=== PATIENT | female | born 2000 ===

== ENCOUNTER 2021-02-10 11:15 | Outpatient (RCR) | payer OTHER, SELFPAY ==
[2021-01-27 12:16] VITALS: BMI 20.7
--- NOTE | 2021-01-27 12:33 | P.HPPSP_ITS ---
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 She reported that she has been following psychiatric services since she was 17 due to depressive symptoms elicited by depressed mood, anhedonia, lack of energy and feelings of hopelessness. She also was abusing alcohol heavely, and she passed out on November 22 2020 and she was admitted inpatient. She has been sober since then. She has only one prior admission into the hospital During the interview, she admitted that she had a few very short episodes of elated mood, shopping sprees and increased energy and irritability and her prescriber has diagnosed her with Bipolar Disorder Type II. Currently she is on Ablify and Lexapro with good improvement, no safety concerns. HPI Medical Evaluation Reviewed: No [facility] Medical History History of renal stone Family History: Denies Social History: The patient is the 2nd of 3 siblings, her milestones were achieved at expected age, she was raised by her mother and had a good childhood. Her parents when she was a sophomore. She graduated from high school and now she is working part-time, lives with his father and she has good social support. Substance History: She started abusing alcohol since she was 19, currently clean and sober. She had abused Valium and Oxycontin, scripts from her mother, but clean and sober of pills for the last 8 months before the intake. Trauma History: Denies Diagnostics Vital Signs (24Hr): Body Mass Index 20.7 Meds/Allergies Allergies Allergies Allergy/AdvReac Type Severity Reaction Status Date / Time No Known Allergies Allergy Verified 01/27/21 11:26 Mental Status Exam Mental Status Exam Patient Appearance: Well Grooomed Patient Orientation: Person, Place, Time and Situation Level of Consciousness: Awake Patient Behavior: Appropriate Mood Description: Calm Affect Description: Appropriate Patient Cognition Impaired: No Ability to Follow Directions: Good Speech Pattern: Clear Memory Description: Intact Hallucinations: None Delusions: Not Present Thought Process: Goal Oriented Thought Content: positive for Intact Judgement: Fair Assessment & Plan Assessment & Plan (1) Bipolar 2 disorder: Status: Acute Code(s): F31.81 - Bipolar II disorder (2) Alcohol abuse: Status: Acute Code(s): F10.10 - Alcohol abuse, uncomplicated Assessment and Plan: Young adult female with good social support with bipolar type II and alcohol use disorder, clean and sober after discharge from the hospital Plan Keep Da and Roman Certification I certify that partial hospital treatment is medically necessary due to the symptoms and problems resulting from the patient's mental illness and the failure to treat the patient at the partial hospital level of care would likely result in the patient requiring inpatient psychiatric care which could not be prevented at a less intensive level of care. Telehealth Telehealth Location of provider rendering services: practice address Location of patient: address on file Patient Identification confirmed using: Name, : Yes Telehealth method: video Patient verbally consented to treatment: Yes Patient verbally consented to billing insurance company: Yes Patient informed of any privacy concerns related to visit: No Time spent with patient (mins): 45
--- NOTE | 2021-01-27 12:40 | PC.ADMIT ---
Patient is a 20 year old female who self referred to the [facility] d/t increase in depression with passive SI, no plan or intent, and increased anxiety with panic attacks. Patient has a history of using substances to cope. Patient reports she has hospitalized in November d/t an incident with alcohol and has been sober since. Patient has a history of stealing her mothers prescription Oxycontin and Valium 8 months ago. Patient has been kicked out of her mother's house and currently living with her father. She reports using Marijuana 3-4 bowls daily last use on 01/25/21 and plans to abstain from this while in the program. Patient is alert and oriented x4. Presents with depressed anxious mood. Denied current SI or thoughts to harm herself. Gave verbal permission to email her a copy of her safety plan. Patient has the crisis number if needed. Medications reconciled with patient and patient's pharmacy. Patient reports taking her medications as prescribed.
--- NOTE | 2021-02-01 14:18 | P.PNPSP_ITS ---
Subjective Subjective Date of Service: 02/01/21 Reason For Visit: MDD, ETOH Interim History: The patient reported that she is doing good, participating in groups. She noticed some sedation and nausea with Abilify 5 mg, the change of her dose was a month ago. We discussed options and she agreed to lower Abilify 2 mg po qhs, fully aware of the risk of hypomania. Medication Compliance: Yes Side effects from medications: Yes (oversedation with Abilify) Attending Groups: Yes Mental Status Exam Mental Status Exam Patient Appearance: Well Grooomed Patient Orientation: Person, Place, Time and Situation Level of Consciousness: Awake Patient Behavior: Appropriate Mood Description: Calm Affect Description: Appropriate Patient Cognition Impaired: No Ability to Follow Directions: Good Speech Pattern: Clear Memory Description: Intact Hallucinations: None Delusions: Not Present Thought Process: Goal Oriented Thought Content: positive for Intact Judgement: Fair Diagnostics Vital Signs (24Hr): Body Mass Index 20.7 Assessment & Plan Assessment & Plan (1) Bipolar 2 disorder: Status: Acute Code(s): F31.81 - Bipolar II disorder Assessment and Plan: Young adult female with bipolar type II, recently discharged from inpatient, stable but with oversedation with Abilify5 mg po qhs. Plan: Lower to 2 mg and reassess, fully aware of the risk of relapse on mood symptoms (2) Alcohol abuse: Status: Acute Code(s): F10.10 - Alcohol abuse, uncomplicated Certification I certify that partial hospital treatment is medically necessary due to the symptoms and problems resulting from the patient's mental illness and the f ailure to treat the patient at the partial hospital level of care would likely result in the patient requiring inpatient psychiatric care which could not be prevented at a less intensive level of care. Greater than 50% of the session was spent on counseling and/or coordination of care Discharge Plan Discharge Attending provider: Duong Negro Primary Care Provider: Tracie Padilla Medications: New aripiprazole [Abilify] 2 mg tablet 2 mg PO DAILY 14 Days Qty: 14 RF: 0 Discontinued aripiprazole [Abilify] 5 mg Tablet 5 mg PO DAILY RF: 0 No Action trazodone 50 mg Tablet 50 - 100 mg PO BEDTIME PRN (Reason: Insomnia) RF: 0 ondansetron HCl 8 mg Tablet 4 mg PO BID RF: 0 escitalopram oxalate [Lexapro] 10 mg Tablet 10 mg PO DAILY RF: 0 Referrals: Tracie Padilla MD [Primary Care Provider] - 1 Week Telehealth Telehealth Location of provider rendering services: practice address Location of patient: address on file Patient Identification confirmed using: Name, : Yes Telehealth method: video Patient verbally consented to treatment: Yes Patient verbally consented to billing insurance company: Yes Patient informed of any privacy concerns related to visit: No Time spent with patient (mins): 15
--- NOTE | 2021-02-08 13:29 | PC.NURSE ---
I met with pt at her request and offered to refer her to a substance use IOP. She is struggling with cravings to use, but reports she is safe and does not intend to use. She agreed to the referral for [facility] IOP and gave me verbal release/ permission to call. I called and put in a referral, the emailed her the info. She has a phone appointment for an intake on Saturday February 27, 2021 at 2pm. They will call.
--- NOTE | 2021-02-09 14:31 | HO.PHPPROGNO ---
Subjective Subjective Date of Service: 02/09/21 Reason For Visit: MDD, ETOH Interim History: The patient reported that she is doing well with the current treatment, no safety issues, content with the current regimen Medication Compliance: Yes Side effects from medications: No Attending Groups: Yes Mental Status Exam Mental Status Exam Patient Appearance: Well Grooomed Patient Orientation: Person, Place, Time and Situation Level of Consciousness: Awake Patient Behavior: Appropriate Mood Description: Calm Affect Description: Appropriate Patient Cognition Impaired: No Ability to Follow Directions: Good Speech Pattern: Clear Memory Description: Intact Hallucinations: None Delusions: Not Present Thought Process: Goal Oriented Thought Content: positive for Intact Judgement: Fair Diagnostics Vital Signs (24Hr): Body Mass Index 20.7 Assessment & Plan Assessment & Plan (1) Bipolar 2 disorder: Status: Acute Code(s): F31.81 - Bipolar II disorder Assessment and Plan: Young female with Bipolar Type II and alcohol use disorder referred from inpatient for continuation of care, so far stable and doing well on Lexapro and a low dose of Abilify. Plan: Keep same treatment. F/U with outpatient providers. D/C (2) Alcohol abuse: Status: Acute Code(s): F10.10 - Alcohol abuse, uncomplicated Certification I certify that partial hospital treatment is medically necessary due to the symptoms and problems resulting from the patient's mental illness and the failure to treat the patient at the partial hospital level of care would likely result in the patient requiring inpatient psychiatric care which could not be prevented at a less intensive level of care. Greater than 50% of the session was spent on counseling and/or coordination of care Discharge Plan Discharge Attending provider: Duong Negro Primary Care Provider: Tracie Padilla Additional Instructions: Phone appointment for an intake at [facility] for substance use IOP on Saturday February 27, 2021 at 2pm. They will call. If you don't hear from them by 2:15, pls call them at [phone]. It should take from 1 to 1 1/2 hours to complete. Medications: New aripiprazole [Abilify] 2 mg tablet 2 mg PO DAILY 14 Days Qty: 14 RF: 0 Discontinued aripiprazole [Abilify] 5 mg Tablet 5 mg PO DAILY RF: 0 No Action trazodone 50 mg Tablet 50 - 100 mg PO BEDTIME PRN (Reason: Insomnia) RF: 0 ondansetron HCl 8 mg Tablet 4 mg PO BID RF: 0 escitalopram oxalate [Lexapro] 10 mg Tablet 10 mg PO DAILY RF: 0 Referrals: Tracie Padilla MD [Primary Care Provider] - 1 Week Stand Alone Forms: Patient Portal Discharge page Telehealth Telehealth Location of provider rendering services: practice address Location of patient: address on file Patient Identification confirmed using: Name, : Yes Telehealth method: video Patient verbally consented to treatment: Yes Patient verbally consented to billing insurance company: Yes Patient informed of any privacy concerns related to visit: No Time spent with patient (mins): 15
--- NOTE | 2021-02-10 14:15 | PC.NURSE ---
Patient discharging from the program today. Reviewed patient's medications with patient. Patient reports she is taking medications as prescribed. Medication education provided.
--- NOTE | 2021-02-10 17:04 | PC.NURSE ---
I called and spoke to Pt's therapist, Jihan Berrios, informing her of pt's successful discharge from [facility] today, and her plans to attend [facility] [place]. Discussed progress made in [facility].
== END 2021-02-13 08:57 | disposition home or self-care (01) ==
LOC: HO.PHPA 11:15
PROVIDERS: PCP Pediatrics; Visit Provider Psychiatry & Neurology Psychiatry
DX: F31.81 Bipolar II disorder (principal); F10.10 Alcohol abuse, uncomplicated; Z79.899 Other long term (current) drug therapy
CPT/HCPCS: 90791; 90853

== ENCOUNTER 2021-06-07 09:25 | Outpatient (RCR) | payer OTHER, SELFPAY ==
--- NOTE | 2021-06-08 09:14 | PC.NURSE ---
Patient left the community meeting stating she would be back. I called her after the community meeting. Patient was crying stating she has a lot of anxiety and was not expecting the groups to be so small which is creating more anxiety. She stated she does not want to continue and feels this is not a good fit for her at this time. Patient denied SI, asked if she was safe and she stated she was. Asked who she could call if she felt unsafe and she stated Crisis. Team is aware.
== END 2021-06-08 09:16 | disposition home or self-care (01) ==
LOC: HO.PHPA 09:25
PROVIDERS: PCP Pediatrics; Visit Provider Psychiatry & Neurology Psychiatry
DX: F33.2 Major depressive disorder, recurrent severe without psychotic features (principal); F31.81 Bipolar II disorder; F41.9 Anxiety disorder, unspecified

== ENCOUNTER 2023-06-10 12:36 | Inpatient (IN) | payer BC, SELFPAY ==
[2023-06-10 12:55] VITALS: BP 156/83; PULSE 110; RESP 20; TEMP 36.8; O2SAT 98; BMI 17.2
--- NOTE | 2023-06-10 12:56 | ED.PSYCH ---
HPI - Psych General Stated Complaint: pysch eval Related Data Home Medications Medication Instructions Recorded Confirmed escitalopram oxalate 10 mg tablet 10 mg PO DAILY 01/27/21 01/27/21 (Lexapro) ondansetron HCl 8 mg tablet 4 mg PO BID 01/27/21 01/27/21 trazodone 50 mg tablet 50 - 100 mg PO BEDTIME PRN Insomnia 01/27/21 01/27/21 Previous Rx's Medication Instructions Recorded aripiprazole 2 mg tablet (Abilify) 2 mg PO DAILY 14 days #14 tabs 02/01/21 Allergies Allergy/AdvReac Type Severity Reaction Status Date / Time No Known Allergies Allergy Verified 06/10/23 12:58 [facility] Past Medical History Medical History History of renal stone Social History Social History Household Members: Family Household Members Other:: Lives with her father Course Course Course Narrative: RME - 22 yo female with history of bipolar 2 disorder and former substance abuse who presents to the ER for evaluation of SI and self harm thoughts, worsening over the last 3 weeks. Therapist sent her to the ER for evaluation and possible inpatient psych admission. Last hospitalized in 2020. Plan: medical clearance, CARE team evaluation Discharge Plan Discharge Prescriptions: No Action trazodone 50 mg Tablet 50 - 100 mg PO BEDTIME PRN (Reason: Insomnia) Rx Instructions: Take 1-2 tabs at Bedtime as needed for Insomnia ondansetron HCl 8 mg Tablet 4 mg PO BID Patient Comments: Patient stated her prescriber told her to cut the tabs in 1/2 and take BID. Rx Instructions: Take twice a day for 10 days escitalopram oxalate [Lexapro] 10 mg Tablet 10 mg PO DAILY aripiprazole [Abilify] 2 mg tablet 2 mg PO DAILY 14 Days Qty: 14 0RF
[2023-06-10 13:13] LABS: MANUAL DIFF FLAG NO
[2023-06-10 13:14] LABS: Basophils Absolute Auto 0.1 X10*3/uL (0.0-0.2); Basophils Percent Auto 0.4 % (0-2); Eosinophils Absolute Auto 0.4 X10*3/uL (0.0-0.4); Eosinophils Percent Auto 3.1 % (0-4); Hematocrit 40.4 % (37.0-47.0); Hemoglobin 13.9 g/dl (12.0-16.0); Imm Gran Abs Auto 0.05 X10*3/uL (0.00-0.03); Imm Gran Pct Auto 0.4 % (0.0-0.4); Lymphocytes Absolute Auto 2.5 X10*3/uL (1.2-4.9); Lymphocytes Percent Auto 22.3 % (20-40); Mean Corpuscular HGB Conc 34.4 g/dl (31.0-35.0); Mean Corpuscular Hemoglobin 33.1 pg (27.0-33.0); Mean Corpuscular Volume 96.2 fL (80.0-98.0); Mean Platelet Volume 8.4 fL (9.4-12.3); Monocytes Absolute Auto 0.8 X10*3/uL (0.1-1.2); Monocytes Percent Auto 7.1 % (2-11); Neutrophils Absolute Auto 7.5 x10*3/uL (2.0-8.3); Neutrophils Percent Auto 66.7 % (45-73); Platelet Count 224 X10*3/uL (160-400); Red Cell Distribution Width 12.3 % (11.0-16.0); White Blood Count 11.2 X10*3/uL (4.8-10.8)
[2023-06-10 13:16] LABS: Appearance Urine Clear; Color Urine Yellow; Glucose Urine UA Negative (Negative); Leukocyte Esterase Urine Small (1+) (Negative); Nitrite Urine Negative (Negative); UMIC TRIGGER UACC YES; Urine Blood Moderate (2+) (Negative); Urine Ketones Negative (Negative); Urine Protein Negative (Neg-Trace)
[2023-06-10 13:24] LABS: Amphetamine Screen Urine Not Detected (Not Detect); Barbiturates, Urine Not Detected (Not Detect); Benzodiazepines Screen Urine Not Detected (Not Detect); Cannabinoid Screen Urine POSITIVE (Not Detect); Cocaine Screen Urine Not Detected (Not Detect); Fentanyl, urine Not Detected (Not Detect); Opiate Screen Urine Not Detected (Not Detect); Phencyclidine Screen Urine Not Detected (Not Detect)
[2023-06-10 13:28] LABS: Ethanol < 10 mg/dL
[2023-06-10 13:32] LABS: Alanine Aminotransferase 7 U/L (0-31); Albumin Level 4.8 g/dL (3.5-5.0); Alkaline Phosphatase 66 U/L (39-117); Anion Gap 11 (12-20); Aspartate Amino Transferase 13 U/L (5-31); Bilirubin Direct 0.1 mg/dL (0.0-0.5); Bilirubin Total 0.3 mg/dL (0.0-1.0); Blood Urea Nitrogen 10 mg/dL (9-16); Calcium 10.2 mg/dL (8.4-10.2); Carbon Dioxide 25 mmol/L (22-29); Chloride 108 mmol/L (96-108); Creatinine Clr Calc Pharmacy 85.9; Estimated Glomerular Filt Rate > 60; Glucose Random 110 mg/dL (60-115); Magnesium 2.2 mg/dL (1.6-2.6); Potassium 4.3 mmol/L (3.3-5.1); Sodium 140 mmol/L (135-145); Total Protein 7.6 g/dL (6.5-8.0)
[2023-06-10 13:41] LABS: UPreg QC Valid YES; Urine Pregnancy NEGATIVE (NEGATIVE)
[2023-06-10 13:43] LABS: Bacteria Urine 1+ (None Seen); Hyaline Casts Urine 0-2 /LPF (0-2); UACC Culture Trigger YES
--- NOTE | 2023-06-10 13:53 | ED_ITS ---
HPI - Psych General Chief Complaint: Psychiatric Symptoms Stated Complaint: surendra santana Time Seen by Provider: 06/10/23 13:43 Source: patient Mode of arrival: ambulatory Limitations: no limitations History of Present Illness HPI Narrative: Patient comes to the emergency room reporting worsening suicidal thoughts. Patient states that prior to arrival today, she did not harm himself in any way. Patient states that she is pretty good at taking her medications, but for the last couple of days, she has had decreased appetite and she has not been taking her meds. Patient denies any homicidal ideation. Patient went to see her therapist today, she is asked to come to the emergency room for further evaluation. Related Data Home Medications Medication Instructions Recorded Confirmed atomoxetine 40 mg capsule 40 mg PO QAM 06/10/23 06/10/23 buspirone 15 mg tablet 15 mg PO BID 06/10/23 06/10/23 cariprazine 3 mg capsule (Vraylar) 3 mg PO DAILY 06/10/23 06/10/23 lamotrigine 100 mg tablet 100 mg PO DAILY 06/10/23 06/10/23 norethindrone (contraceptive) 0.35 0.35 mg PO DAILY 06/10/23 06/10/23 mg tablet (Incassia) Allergies Allergy/AdvReac Type Severity Reaction Status Date / Time No Known Allergies Allergy Verified 06/10/23 12:58 Review of Systems 2 Review of Systems: Constitutional : No Weight loss, No Fever, No Chills, No Night Sweats, No Fatigue, No Malaise ENT/Mouth : No Hearing loss, No Ear Pain, No Nasal Congestion, No Sinus Pain, No Hoarseness, No sore throat, No Rhinorrhea, No Swallowing Difficulty Eyes: No Eye Pain, No Swelling, No Redness, No Foreign Body, No Discharge, No Vision Changes Cardiovascular : No Chest Pain, No SOB, No Dyspnea on Exertion, No Orthopnea, No Edema, No Palpitations Respiratory : No Cough, No Sputum, No Wheezing, No Smoke Exposure, No Dyspnea Gastrointestinal : No Nausea, No Vomiting, No Diarrhea, No Constipation, No abdominal Pain, No Hematochezia, No Melena Genitourinary : no irregular bleeding, No Dysuria, No Urinary Frequency, No Hematuria, No Urinary Incontinence, No Urgency, No Flank Pain, No Urinary Flow Changes, No Hesitancy Musculoskeletal : No joint pain, No Myalgias, No Joint Swelling Skin : No Skin Lesions, No rash Neuro : No Weakness, No Numbness, No Paresthesias, No Loss of Consciousness, No Dizziness, No Headache Psych : No Anxiety/Panic, complaining of depression, SI, no HI Heme/Lymph: No Bruising, No Bleeding,No Lymphadenopathy Endocrine : No Polyuria, No Polydipsia, No Temperature Intolerance [facility] Past Medical History Medical History (Updated 06/10/23 @ 14:02 by Alice Ohara MD) Alcohol abuse Bipolar 2 disorder History of renal stone Social History Social History Household Members: Family Household Members Other:: Lives with her father Alcohol intake: never Smoked in Last 30 Days: No Use of substances other than those prescribed or required for medical reasons: Yes Substance Use Type: Marijuana Advance Directives: No Advance Directives Information Provided: Yes Healthcare Proxy: No Guardian: No Patient : No Physical Exam 2 Vital Signs: Vital Signs: Last Vital Signs Temp 98.2 F 06/10/23 12:55 Pulse 110 H 06/10/23 12:55 Resp 20 06/10/23 12:55 BP 156/83 H 06/10/23 12:55 Pulse Ox 98 06/10/23 12:55 O2 Del Method Room Air 06/10/23 12:55 BMI result Body Mass Index 17.2 Const: Other: Appearance: Alert. Oriented X3. No acute distress. Eyes: Pupils equal, round and reactive to light. ENT: Pharynx normal. Neck: Normal inspection. Neck supple. No lymph nodes noted. No crepitus CVS: Normal heart rate and rhythm. Pulses normal. Normal S1 and S2 Respiratory: No respiratory distress. Breath sounds normal. No Wheezing. No rales Abdomen: Soft and nontender. No rigidity. No distention. Skin: Skin warm and dry. Normal skin color. Normal skin turgor. Extremities: No lower extremity edema. No Lacerations. No Rash Neuro: Oriented X 3. No motor deficit. No sensory deficit. Moving all extremities. No slurred speech. CN 2 through 12 grossly intact Psych: calm, cooperative, normal affect Course Course Course Narrative: -care team consult pending Medications Administered Generic Name Dose Route Start Last Admin Trade Name Freq PRN Reason Stop Dose Admin Nitrofurantoin Macrocrystals 100 mg 06/10/23 14:05 06/10/23 16:40 Nitrofurantoin Monohyd/M-Cryst 100 Mg Capsule PO 100 mg BID NIKI Administration Discontinued Medications Generic Name Dose Route Start Last Admin Trade Name Sidney PRN Reason Stop Dose Admin Cariprazine 3 mg 06/10/23 16:00 06/10/23 16:56 Cariprazine Hcl 3 Mg Capsule PO Not Given DAILY NIKI Lamotrigine 100 mg 06/10/23 16:00 06/10/23 16:56 Lamotrigine 100 Mg Tablet PO Not Given DAILY NIKI Medical Decision Making Medical Decision Making [facility] Narrative: -my interpretation of labs: White blood cell count 11.2, chemistry unremarkable, negative -patient has a mild UTI, patient was given the 1st dose of Macrobid in the ED -care team consult mom was done, recommendations: Inpatient psych, patient agreeable with plan Differential Diagnosis Differential Diagnoses: The differential diagnosis associated with the presentation includes (Patient will remain under observation until cleared by Behavioral Health) Admission/Observation Consideration of admission/observation: Escalation of care including admission/observation considered Consult Healthcare Provider Management of the patient was discussed with: Behavioral Health Provider Lab Data [facility] Lab Attestation statement: I reviewed the patient's lab results. 06/10/23 13:05 06/10/23 13:05 Labs: Lab Results 06/10/23 Range/Units 13:05 WBC 11.2 H (4.8-10.8) X10*3/uL RBC 4.20 (4.20-5.50) X10*6/uL Hgb 13.9 (12.0-16.0) g/dl Hct 40.4 (37.0-47.0) % MCV 96.2 (80.0-98.0) fL MCH 33.1 H (27.0-33.0) pg MCHC 34.4 (31.0-35.0) g/dl RDW 12.3 (11.0-16.0) % Plt Count 224 (160-400) X10*3/uL MPV 8.4 L (9.4-12.3) fL Immature Gran % (Auto) 0.4 (0.0-0.4) % Neut % (Auto) 66.7 (45-73) % Lymph % (Auto) 22.3 (20-40) % Hood % (Auto) 7.1 (2-11) % Eos % (Auto) 3.1 (0-4) % Baso % (Auto) 0.4 (0-2) % Lymph # (Auto) 2.5 (1.2-4.9) X10*3/uL Hood # (Auto) 0.8 (0.1-1.2) X10*3/uL Eos # (Auto) 0.4 (0.0-0.4) X10*3/uL Baso # (Auto) 0.1 (0.0-0.2) X10*3/uL Abs Immat Gran (auto) 0.05 H (0.00-0.03) X10*3/uL Absolute Neuts (auto) 7.5 (2.0-8.3) x10*3/uL Absolute Nucleated RBC 0.000 (0.0-0.012) X10*3/uL Nucleated RBC % (auto) 0.0 (0.0-0.2) /100WBC Sodium 140 (135-145) mmol/L Potassium 4.3 (3.3-5.1) mmol/L Chloride 108 (96-108) mmol/L Carbon Dioxide 25 (22-29) mmol/L Anion Gap 11 L (12-20) BUN 10 (9-16) mg/dL Creatinine 0.89 (0.5-1.4) mg/dL Estim Creat Clear Calc 85.9 Estimated GFR > 60 Random Glucose 110 (60-115) mg/dL Calcium 10.2 (8.4-10.2) mg/dL Magnesium 2.2 (1.6-2.6) mg/dL Total Bilirubin 0.3 (0.0-1.0) mg/dL Direct Bilirubin 0.1 (0.0-0.5) mg/dL AST 13 (5-31) U/L ALT 7 (0-31) U/L Alkaline Phosphatase 66 (39-117) U/L Total Protein 7.6 (6.5-8.0) g/dL Albumin 4.8 (3.5-5.0) g/dL Urine Color Yellow Urine Appearance Clear Urine pH 6.0 (5.0-9.0) Ur Specific [place] 1.020 (1.005-1.025) Urine Protein Negative (Neg-Trace) mg/dL Urine Glucose (UA) Negative (Negative) mg/dL Urine Ketones Negative (Negative) mg/dL Urine Blood Moderate (2+) H (Negative) Urine Nitrite Negative (Negative) Ur Leukocyte Esterase Small (1+) H (Negative) Urine RBC 6-10 H (0-2) /HPF Urine WBC 6-10 H (0-5) /HPF Ur Squamous Epith Cells 3-5 (0-2) /HPF Urine Bacteria 1+ (None Seen) Hyaline Casts 0-2 (0-2) /LPF Urine Test NEGATIVE (NEGATIVE) Urine Opiates Screen Not Detected (Not Detect) Urine Fentanyl Screen Not Detected (Not Detect) Ur Barbiturates Screen Not Detected (Not Detect) Ur Phencyclidine Scrn Not Detected (Not Detect) Ur Amphetamines Screen Not Detected (Not Detect) U Benzodiazepines Scrn Not Detected (Not Detect) Urine Cocaine Screen Not Detected (Not Detect) U Marijuana (THC) Screen POSITIVE H (Not Detect) Ethyl Alcohol < 10 mg/dL Critical Care Time Critical Care Time Critical Care Time: Yes Total Critical Care Time: 60 Attestation: I have personally provided critical care time. Time includes review of lab data, radiology results, discussion with consultants, and monitoring for potential decompensation. Intervention performed as documented. Discharge Plan Discharge Clinical Impression: Suicidal ideation Patient Disposition: Still a Patient Prescriptions: No Action norethindrone (contraceptive) [Incassia] 0.35 mg tablet 0.35 mg PO DAILY lamotrigine 100 mg tablet 100 mg PO DAILY buspirone 15 mg tablet 15 mg PO BID atomoxetine 40 mg capsule 40 mg PO QAM Vraylar 3 mg capsule 3 mg PO DAILY Interventions: [place]-Suicide Risk Severity Scale Last Done: 06/10/23 15:17
--- NOTE | 2023-06-10 15:20 | PC.NURSE ---
Patient reports had recent med changes and has had increasing thoughts of SI since med changes. Patient reports inability to work has been a stressor for her. Denies HI, NO SI plan. Calm and cooperative, denies pain or discomfort
[2023-06-10] MEDS: Nitrofurantoin Monohyd/M-Cryst 100 MG CAPSULE PO ×2 (16:40→20:16)
--- NOTE | 2023-06-10 16:47 | PC.NURSE ---
Called pharmacy to adjust med administration times
--- NOTE | 2023-06-10 18:13 | MHC.CARE ---
Patient evaluated by the CARE Team and will be referred for inpatient psychiatric treatment.
--- NOTE | 2023-06-10 18:23 | PC.NURSE ---
Patient visiting with boyfriend, calm and cooperative
[2023-06-10] MEDS: busPIRone HCl 5 MG TABLET 15 MG PO (20:16)
[2023-06-10] MEDS: LORazepam 1 MG TABLET 2 MG PO (20:16)
[2023-06-10 21:50] LABS: COVID-19 Test Negative (Negative); IDNOW Serial# 6674DD1D
--- NOTE | 2023-06-11 | ECG_ITS ---
Test Reason : assess qt interval Blood Pressure : / mmHG Vent. Rate : 089 BPM Atrial Rate : 089 BPM P-R Int : 128 ms QRS Dur : 068 ms QT Int : 340 ms P-R-T Axes : 068 087 042 degrees QTc Int : 413 ms Normal sinus rhythm with sinus arrhythmia Possible Left atrial enlargement Septal infarct , age undetermined Abnormal ECG No previous ECGs available Referred By: Dalton Justice Electronically Signed By:PACO BAUTISTA
[2023-06-11 00:31] VITALS: BP 136/84; PULSE 96; RESP 16; TEMP 36.4; O2SAT 98
--- NOTE | 2023-06-11 05:59 | PC.NURSE ---
Patient slept through the night, no distress observed/reported, behavior non concerning at this time, had a episode of behavior outburst but self deescalated, Ativan 2 mg PO administered per request with + effect, disposition per care team is section 12 inpatient bed search, labs completed/resulted, medication compliant, Pre-accepted to for 06/11/23 per care team, VSS, will continue to monitor.
--- NOTE | 2023-06-11 07:18 | PC.NURSE ---
patient appears to remain asleep at present respirations are even and unlabored patient appears in no distress
[2023-06-11] MEDS: lamoTRIgine 100 MG TABLET PO (09:00)
[2023-06-11] MEDS: busPIRone HCl 5 MG TABLET 15 MG PO ×2 (09:00→19:55)
[2023-06-11] MEDS: Cariprazine HCl 3 MG CAPSULE PO (09:00)
[2023-06-11] MEDS: Nitrofurantoin Monohyd/M-Cryst 100 MG CAPSULE PO ×2 (09:01→19:55)
[2023-06-11 13:38] VITALS: BP 136/76; PULSE 102; RESP 16; TEMP 36.9; O2SAT 100
[2023-06-11 14:24] VITALS: BP 127/72; PULSE 117; RESP 18; TEMP 36.9; O2SAT 99
[2023-06-11 18:00] VITALS: BP 135/80; PULSE 90; RESP 18; TEMP 36.6; O2SAT 98
[2023-06-11] MEDS: traZODone HCL 50 MG TABLET PO (21:04)
[2023-06-12] MEDS: traZODone HCL 50 MG TABLET PO ×2 (01:10→21:27)
[2023-06-12 08:08] LABS: Alanine Aminotransferase 8 U/L (0-31); Albumin Level 4.8 g/dL (3.5-5.0); Alkaline Phosphatase 64 U/L (39-117); Anion Gap 16 (12-20); Aspartate Amino Transferase 14 U/L (5-31); Bilirubin Total 0.8 mg/dL (0.0-1.0); Blood Urea Nitrogen 9 mg/dL (9-16); Carbon Dioxide 23 mmol/L (22-29); Chloride 104 mmol/L (96-108); Cholesterol 190 mg/dL (<200); Estimated Glomerular Filt Rate > 60; Glucose Fasting 92 mg/dL (60-99); HDL Cholesterol 63 mg/dL (>40); LDL Cholesterol Calculated 117 mg/dL (<100); Potassium 3.9 mmol/L (3.3-5.1); Sodium 139 mmol/L (135-145); Total Protein 7.5 g/dL (6.5-8.0); Triglycerides 53 mg/dL (<150)
[2023-06-12 08:32] VITALS: BP 127/77; PULSE 90; RESP 16; TEMP 36.9; O2SAT 97
[2023-06-12] MEDS: busPIRone HCl 5 MG TABLET 15 MG PO (08:40)
[2023-06-12] MEDS: Cariprazine HCl 3 MG CAPSULE PO (08:41)
[2023-06-12] MEDS: lamoTRIgine 100 MG TABLET PO (08:41)
[2023-06-12] MEDS: Nitrofurantoin Monohyd/M-Cryst 100 MG CAPSULE PO ×2 (08:41→21:28)
--- NOTE | 2023-06-12 13:10 | MHC.CLN ---
NUTRITION CONSULT FOR RECENT WEIGHT LOSS. REPORTS THAT NOT EATING WELL PRIOR TO ADMISSION. TAKING MEDS ON EMPTY STOMACH CAUSING NAUSEA. NO CURRENT CONCERNS WITH APPETITE AND REPORTS THAT EATING BETTER. NO ADDITIONAL NUTRITION INTERVENTIONS AT THIS TIME.
[2023-06-12 18:00] VITALS: BP 138/94; PULSE 98; RESP 16; TEMP 36.6; O2SAT 98
--- NOTE | 2023-06-12 18:35 | P.HPPS_ITS ---
HPI Date of Service: 06/12/23 Chief Complaint: si bipolar dx Sources of Information: patient interviewed, chart reviewed and crisis/core team assessment reviewed HPI Subjective Notes: Li Warning and Conditional Voluntary Narrative: Patient is a 22-year-old female with history of depression, anxiety, alcohol abuse in remission, who presents for worsening depression with SI. Patient reports that depression started in high school; she lists several trials of medication including Lexapro, fluoxetine, Wellbutrin and Abilify. 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 After graduating high school patient drink about a bottle and a half of wine daily for about 6 months, trying to cope with depression, sometimes also abusing prescription oxycodone and Ativan. Patient got sober in 2020. She was started on Lamictal and some BuSpar and for the next year her mood significantly improved, she was working full-time, able to move out on her own. However, her worker hours were cut down and without being busy, depression started to set in; she was started on Vraylar 1.5 mg. Her depression did not improve much and with working less, She relapsed with alcohol for short duration which worsened her depression still. Although She has been sober for the past 4 months she remained depressed and this past spring who boyfriend broke up with her which compounded her depression. Patient's normally intermittent passive SI which was typically fleeting and able to be ignored, started to increase in frequency. Her Vraylar was increased to 3 mg and BuSpar to 15 mg b.i.d. (she was also started on Strattera though does not have any clear history of ADHD). Patient feels that her suicidal thinking intensified and became daily. These past few weeks her depression has significantly worsened where she has no interest in doing things, feeling guilty all the time, low energy, poor concentration, low appetite and sleeping most of the time; suicidal thoughts became present throughout the day. Patient felt strong need to get help before her depression and SI worsened still and so came to the hospital. Denies history of trauma; denies history of AVH; denies history of any obvious manic episode. Past Psychiatric History: Psychiatrically admitted 1 time little over year ago No history of suicide attempt History of superficial self-harm, cutting thighs but not for the past several months. Currently engaged in outpatient therapy Medication trials: Lexapro, fluoxetine, Wellbutrin, Abilify, BuSpar Lamictal partially helpful but does not tolerate higher than 100 mg Medical Evaluation Reviewed: Yes [facility] Medical History (Updated 06/13/23 @ 11:56 by Juan Miguel Rowley MD) Alcohol use disorder, moderate, in sustained remission Anxiety MDD (major depressive disorder), recurrent severe, without psychosis Alcohol abuse Bipolar 2 disorder History of renal stone Family History: Sister: Depression/anxiety Social History: The patient is the 2nd of 3 siblings, her milestones were achieved at expected age, she was raised by her mother and had a good childhood. Her parents when she was a sophomore. She graduated from high school with high honors and was accepted to pharmacy school however she did not attend due to depression; patient has been working part-time, lives in her own apartment. -mother and father are supportive -new boyfriend who is supportive Substance History: Intermittent alcohol abuse Patient heavily drinking for about 6 months, drinking 1.5 bottles of wine a day with some withdrawal symptoms; has been sober for the past 4 months Intermittent prescription oxy and Ativan abuse, not since September 2020 Daily cannabis Trauma History: Denies Diagnostics Vital Signs (24Hr): Vital Signs - 24 hr 06/12/23 08:32 Temperature 98.4 F Pulse Rate 90 Respiratory Rate 16 Blood Pressure 127/77 Pulse Oximetry 97 Oxygen Delivery Method Room Air BMI result Body Mass Index 17.2 Labs 06/10/23 13:05 06/12/23 07:26 Labs: Laboratory Results - last 48 hr 06/10/23 06/12/23 21:20 07:26 Sodium 139 Potassium 3.9 Chloride 104 Carbon Dioxide 23 Anion Gap 16 BUN 9 Creatinine 0.78 Estim Creat Clear Calc 98.0 Estimated GFR > 60 Fasting Glucose 92 Calcium 10.0 Total Bilirubin 0.8 AST 14 ALT 8 Alkaline Phosphatase 64 Total Protein 7.5 Albumin 4.8 Triglycerides 53 Cholesterol 190 LDL Cholesterol, Calc 117 H HDL Cholesterol 63 COVID-19 ([facility]) Negative COVID-19 Clin Com See Note Meds/Allergies Meds Home Medications Medication Instructions Recorded Confirmed Type atomoxetine 40 mg capsule 40 mg PO QAM 06/10/23 06/10/23 History buspirone 15 mg tablet 15 mg PO BID 06/10/23 06/10/23 History cariprazine 3 mg capsule (Vraylar) 3 mg PO DAILY 06/10/23 06/10/23 History lamotrigine 100 mg tablet 100 mg PO DAILY 06/10/23 06/10/23 History norethindrone (contraceptive) 0.35 0.35 mg PO DAILY 06/10/23 06/10/23 History mg tablet (Incassia) Allergies Allergies Allergy/AdvReac Type Severity Reaction Status Date / Time No Known Allergies Allergy Verified 06/10/23 12:58 Mental Status Exam Mental Status Exam Narrative: Pt is alert and oriented; behavior is cooperative, friendly and calm; patient is not in distress; dressed in casual attire with adequate hygiene; mood is described as depressed and affect congruent, downcast and tearful; eye contact appropriate; Speech is normal rate, volume and prosody and not pressured; some psychomotor retardation present; thought process is organized and goal directed; Thought content is on afraid she will never get better, overwhelming depressive feelings and anxiety; treatment options; otherwise pertinent to relevant topics and without any delusional content, paranoid ideations or grandiosity; continued SI; no HI. There is no evidence of perceptual disturbance. Patients insight and judgment impaired Assessment & Plan Assessment & Plan (1) MDD (major depressive disorder), recurrent severe, without psychosis: Status: Acute Code(s): F33.2 - Major depressive disorder, recurrent severe without psychotic features (2) Anxiety: Status: Acute Code(s): F41.9 - Anxiety disorder, unspecified (3) Alcohol use disorder, moderate, in sustained remission: Status: Acute Code(s): F10.21 - Alcohol dependence, in remission Plan HPI: Patient is a 22-year-old female with history of depression, anxiety, alcohol abuse in remission, who presents for worsening depression with SI. Patient reports that depression started in high school; she lists several trials of medication including Lexapro, fluoxetine, Wellbutrin and Abilify. 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 After graduating high school patient drink about a bottle and a half of wine daily for about 6 months, trying to cope with depression, sometimes also abusing prescription oxycodone and Ativan. Patient got sober in 2020. She was started on Lamictal and some BuSpar and for the next year her mood significantly improved, she was working full-time, able to move out on her own. However, her worker hours were cut down and without being busy, depression started to set in; she was started on Vraylar 1.5 mg. Her depression did not improve much and with working less, She relapsed with alcohol for short duration which worsened her depression still. Although She has been sober for the past 4 months she remained depressed and this past spring who boyfriend broke up with her which compounded her depression. Patient's normally intermittent passive SI which was typically fleeting and able to be ignored, started to increase in frequency. Her Vraylar was increased to 3 mg and BuSpar to 15 mg b.i.d. (she was also started on Strattera though does not have any clear history of ADHD). Patient feels that her suicidal thinking intensified and became daily. These past few weeks her depression has significantly worsened where she has no interest in doing things, feeling guilty all the time, low energy, poor concentration, low appetite and sleeping most of the time; suicidal thoughts became present throughout the day. Patient felt strong need to get help before her depression and SI worsened still and so came to the hospital. Denies history of trauma; denies history of AVH; denies history of any obvious manic episode. Impression/plan: Patient has refractory depression. Patient has chronic depression only partially treated with Lamictal. Several medication trials including 2 SSRIs, Wellbutrin, Vraylar and augmentation trials with Abilify and BuSpar. Alcohol abuse seems to have been coping strategy clearly contributory, however patient has been sober for the past 4 months. There is no clear indication that patient has had any manic episodes; 1 time when she was sober she was acting hyper for a few days but she is vague on the details. -discussed lithium however patient is anxious about risk for side effects; also discussed ECT -will discontinue Strattera. Patient has no history of ADD type symptoms, getting straight A's, high honors all through schooling and her only struggles with concentration and attention are during depression. -will likely lower BuSpar; she has been on a low-dose but has not seemed helpful. Plan: CV Q 15 minute checks Start clonidine 0.1 mg Q 4 p.r.n. for anxiety Continue Vraylar 3 mg daily for now Continue Lamictal 100 mg daily; patient does not tolerate 150 mg, felt foggy brained lower BuSpar; likely discontinue Discontinue Strattera; no indication for ADHD Will explore medication options Will discuss T MS as a possibility Patient educated on: diagnosis, medication risk/benefits, substance abuse, ECT and therapeutic strategies Informed Consent: understands Reason for continued inpatient stay Substantial Risk for: harm to self and rapid decompensation Statement Statement: I have reviewed the history and physical and performed a pertinent examination on my patient. No changes have occurred unless specified. If the History and Physical was not performed prior to admission, the Hospitalist's service will be consulted for completing the admission physical. Time Spent With Patient Time: Total time managing care of this patient today ____ minutes.
[2023-06-12 21:20] VITALS: BP 118/70; PULSE 83; TEMP 37
[2023-06-12] MEDS: cloNIDine HCL 0.1 MG TABLET PO (21:26)
[2023-06-12] MEDS: busPIRone HCl 10 MG TABLET PO (21:28)
[2023-06-13] MEDS: traZODone HCL 50 MG TABLET PO ×2 (02:57→21:45)
[2023-06-13 03:15] VITALS: BP 126/74; PULSE 70
[2023-06-13] MEDS: cloNIDine HCL 0.1 MG TABLET PO ×2 (03:17→19:44)
[2023-06-13 08:14] VITALS: BP 133/79; PULSE 85; RESP 16; TEMP 36.8; O2SAT 97
[2023-06-13] MEDS: Nitrofurantoin Monohyd/M-Cryst 100 MG CAPSULE PO ×2 (08:57→21:45)
[2023-06-13] MEDS: lamoTRIgine 100 MG TABLET PO (08:58)
[2023-06-13] MEDS: busPIRone HCl 10 MG TABLET PO (08:58)
[2023-06-13] MEDS: Cariprazine HCl 3 MG CAPSULE PO (08:58)
[2023-06-13 11:30] VITALS: BMI 18.1
--- NOTE | 2023-06-13 12:17 | P.PNPSI_ITS ---
Subjective Subjective Date of Service: 06/13/23 Reason For Visit: si bipolar dx Interim History: Met with patient; discussed with team Patient reports feeling much better today. She is not sure why but just overall more hopeful. She said she had a good conversation with her boyfriend and both her parents and also has been connecting with people in the milieu. She went over her history again and discussed again her history of a pseudo manic episode which she in hindsight does not think was anything other than a dysregulated moment. She denies any SI and is hopeful about overcoming depression. Discussed medication management thoroughly and patient agreed to increase Lamictal by adding 25 mg to bedtime rather than daily dose which will hopefully alleviate sense of brain fog that she had when it was increased and taking all the same time. She will remain on Vraylar and Also will put BuSpar back to its former dose. She is hoping that adding extra Lamictal will be enough since it was at least partially helpful in the past. She would like to attend outpatient partial program Patient slept well and found clonidine helpful for anxiety Mental Status Exam Mental Status Exam Narrative: Pt is alert and oriented; behavior is cooperative, friendly and calm; patient is not in distress; dressed in casual attire with adequate hygiene; mood is described as better and affect congruent, calm, brighter; eye contact appropriate; Speech is normal rate, volume and prosody and not pressured; no psychomotor retardation present; thought process is organized and goal directed; Thought content is on treatment, hopeful; otherwise pertinent to relevant topics and without any delusional content, paranoid ideations or grandiosity; no SI; no HI. There is no evidence of perceptual disturbance. Patients insight and judgment fair Diagnostics Vital Signs (24Hr): Vital Signs - 24 hr 06/12/23 18:00 06/12/23 21:20 06/13/23 03:15 Temperature 97.8 F 98.6 F Pulse Rate 98 83 70 Respiratory Rate 16 Blood Pressure 138/94 H 118/70 126/74 Pulse Oximetry 98 Oxygen Delivery Method Room Air 06/13/23 08:14 Temperature 98.2 F Pulse Rate 85 Respiratory Rate 16 Blood Pressure 133/79 Pulse Oximetry 97 Oxygen Delivery Method Room Air BMI result Body Mass Index 18.1 Labs 06/10/23 13:05 06/12/23 07:26 Labs: Laboratory Results - last 48 hr 06/12/23 07:26 Sodium 139 Potassium 3.9 Chloride 104 Carbon Dioxide 23 Anion Gap 16 BUN 9 Creatinine 0.78 Estim Creat Clear Calc 98.0 Estimated GFR > 60 Fasting Glucose 92 Calcium 10.0 Total Bilirubin 0.8 AST 14 ALT 8 Alkaline Phosphatase 64 Total Protein 7.5 Albumin 4.8 Triglycerides 53 Cholesterol 190 LDL Cholesterol, Calc 117 H HDL Cholesterol 63 Medications Medications Current Medications Acetaminophen (Acetaminophen 325 Mg Tablet) 650 mg PO Q6H PRN PRN Reason: Headache/Pain Mild Scale (1-3) Al Hydroxide/Mg Hydroxide (Magnesium Hydrox/Alum Hydrox 30 Ml Oral.Susp) 30 ml PO Q6H PRN PRN Reason: Heartburn/Nausea Buspirone HCl (Buspirone Hcl 10 Mg Tablet) 10 mg PO BID [facility] Last Admin: 06/13/23 08:58 Dose: 10 mg Cariprazine (Cariprazine Hcl 3 Mg Capsule) 3 mg PO DAILY [facility] Last Admin: 06/13/23 08:58 Dose: 3 mg Clonidine HCl (Clonidine Hcl 0.1 Mg Tablet) 0.1 mg PO Q4H PRN; Protocol PRN Reason: anxiety Last Admin: 06/13/23 03:17 Dose: 0.1 mg Hydroxyzine HCl (Hydroxyzine Hcl 25 Mg Tablet) 25 mg PO Q6H PRN PRN Reason: Anxiety Lamotrigine (Lamotrigine 100 Mg Tablet) 100 mg PO DAILY [facility] Last Admin: 06/13/23 08:58 Dose: 100 mg Magnesium Hydroxide (Milk Of Magnesia 30 Ml Oral.Susp) 30 ml PO DAILY PRN PRN Reason: Constipation Nitrofurantoin Macrocrystals (Nitrofurantoin Monohyd/M-Cryst 100 Mg Capsule) 100 mg PO BID [facility] Last Admin: 06/13/23 08:57 Dose: 100 mg Non-Formulary Medication (Norethindrone (Contraceptive) [Incassia]) 0.35 mg PO DAILY [facility] Last Admin: 06/13/23 08:58 Dose: 0.35 mg Trazodone HCl (Trazodone Hcl 50 Mg Tablet) 50 mg PO BEDTIME [id number] PRN PRN Reason: Insomnia Last Admin: 06/13/23 02:57 Dose: 50 mg Allergies Allergies Allergy/AdvReac Type Severity Reaction Status Date / Time No Known Allergies Allergy Verified 09/18/23 12:58 Assessment & Plan Assessment & Plan (1) MDD (major depressive disorder), recurrent severe, without psychosis: Status: Acute Code(s): F33.2 - Major depressive disorder, recurrent severe without psychotic features (2) Anxiety: Status: Acute Code(s): F41.9 - Anxiety disorder, unspecified (3) Alcohol use disorder, moderate, in sustained remission: Status: Acute Code(s): F10.21 - Alcohol dependence, in remission Plan HPI: Patient is a 22-year-old female with history of depression, anxiety, alcohol abuse in remission, who presents for worsening depression with SI. Patient reports that depression started in high school; she lists several trials of medication including Lexapro, fluoxetine, Wellbutrin and Abilify. 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 After graduating high school patient drink about a bottle and a half of wine daily for about 6 months, trying to cope with depression, sometimes also abusing prescription oxycodone and Ativan. Patient got sober in 2020. She was started on Lamictal and some BuSpar and for the next year her mood significantly improved, she was working full-time, able to move out on her own. However, her worker hours were cut down and without being busy, depression started to set in; she was started on Vraylar 1.5 mg. Her depression did not improve much and with working less, She relapsed with alcohol for short duration which worsened her depression still. Although She has been sober for the past 4 months she remained depressed and this past spring who boyfriend broke up with her which compounded her depression. Patient's normally intermittent passive SI which was typically fleeting and able to be ignored, started to increase in frequency. Her Vraylar was increased to 3 mg and BuSpar to 15 mg b.i.d. (she was also started on Strattera though does not have any clear history of ADHD). Patient feels that her suicidal thinking intensified and became daily. These past few weeks her depression has significantly worsened where she has no interest in doing things, feeling guilty all the time, low energy, poor concentration, low appetite and sleeping most of the time; suicidal thoughts became present throughout the day. Patient felt strong need to get help before her depression and SI worsened still and so came to the hospital. Denies history of trauma; denies history of AVH; denies history of any obvious manic episode. Impression/plan: Patient has refractory depression. Patient has chronic depression only partially treated with Lamictal. Several medication trials including 2 SSRIs, Wellbutrin, Vraylar and augmentation trials with Abilify and BuSpar. Alcohol abuse seems to have been coping strategy clearly contributory, however patient has been sober for the past 4 months. There is no clear indication that patient has had any manic episodes; 1 time when she was sober she was acting hyper for a few days but she is vague on the details. -discussed lithium however patient is anxious about risk for side effects; also discussed ECT -will discontinue Strattera. Patient has no history of ADD type symptoms, getting straight A's, high honors all through schooling and her only struggles with concentration and attention are during depression. -will likely lower BuSpar; she has been on a low-dose but has not seemed helpful. Hospital course: 06/13 patient feeling better today; she thinks that simply encouragement that she has gotten from family and milieu. This caused her to question the need for medication management. However she realizes that when struggles come she gets quickly demoralized which heads towards serious depression. Will increase Lamictal but add a bedtime dose. Will remain on Vraylar and BuSpar for now. Patient feeling safe and started to talk about discharge and aftercare plans. Also discussed EMS Plan: CV Q 15 minute checks Continue clonidine 0.1 mg Q 4 p.r.n. for anxiety Continue Vraylar 3 mg daily for now Continue Lamictal 100 mg daily; patient does not tolerate 150 mg, felt foggy brained ADD Lamictal 25 mg q.h.s.; hopefully by splitting the dose she will not get foggy brain Return to BuSpar 15 mg b.i.d. Discontinue Strattera; no indication for ADHD Will explore medication options Will discuss T MS as a possibility Patient educated on: diagnosis, medication risk/benefits and TMS Informed Consent: understands Reason for continued inpatient stay Substantial Risk for: stable for discharge Time Spent With Patient Time: Total time managing care of this patient today ____ minutes.
[2023-06-13 16:51] VITALS: BP 135/73; PULSE 58; RESP 16; TEMP 37.1; O2SAT 100
[2023-06-13 21:40] VITALS: BP 119/77; PULSE 84; TEMP 36.4
[2023-06-13] MEDS: busPIRone HCl 5 MG TABLET 15 MG PO (21:44)
[2023-06-13] MEDS: lamoTRIgine 25 MG TABLET PO (21:45)
[2023-06-14 02:40] VITALS: BP 128/76; PULSE 102
[2023-06-14] MEDS: traZODone HCL 50 MG TABLET PO ×2 (02:42→23:14)
[2023-06-14] MEDS: cloNIDine HCL 0.1 MG TABLET PO ×3 (02:42→18:46)
[2023-06-14 08:40] VITALS: BP 127/73; PULSE 82; RESP 16; TEMP 36.6; O2SAT 100
[2023-06-14] MEDS: Cariprazine HCl 3 MG CAPSULE PO (09:00)
[2023-06-14] MEDS: Nitrofurantoin Monohyd/M-Cryst 100 MG CAPSULE PO ×2 (09:00→20:30)
[2023-06-14] MEDS: busPIRone HCl 5 MG TABLET 15 MG PO ×2 (09:00→20:31)
[2023-06-14] MEDS: lamoTRIgine 100 MG TABLET PO (09:01)
--- NOTE | 2023-06-14 10:11 | HO.PSYCHPN ---
Subjective Subjective Date of Service: 06/14/23 Reason For Visit: si bipolar dx Interim History: met with patient; discussed with team pt continues to feel much better; no depression, no SI, sleeping and eating well; no side-effects from increased Lamictal. Pt says she realizes she is able to get herself out of depression, that it's just when shes' despressed she forgets she has a tool box... Discussed behavioral activation, outpt therapy and partial day program. Pt asks for discharge; she feels ready and says she's starting to get bored on unit. father picking her up and she'll stay w/ boyfriend for a few days while waiting to start partial Mental Status Exam Mental Status Exam Narrative: Pt is alert and oriented; behavior is cooperative, friendly and calm; patient is not in distress; dressed in casual attire with adequate hygiene; mood is described as good and affect congruent, calm, bright; eye contact appropriate; Speech is normal rate, volume and prosody and not pressured; no psychomotor retardation present; thought process is organized and goal directed; Thought content is on treatment, hopeful; otherwise pertinent to relevant topics and without any delusional content, paranoid ideations or grandiosity; no SI; no HI. There is no evidence of perceptual disturbance. Patients insight and judgment fair Diagnostics Vital Signs (24Hr): Vital Signs - 24 hr 06/13/23 16:51 06/13/23 21:40 06/14/23 02:40 Temperature 98.8 F 97.5 F Pulse Rate 58 84 102 H Respiratory Rate 16 Blood Pressure 135/73 119/77 128/76 Pulse Oximetry 100 Oxygen Delivery Method Room Air 06/14/23 08:40 Temperature 98 F Pulse Rate 82 Respiratory Rate 16 Blood Pressure 127/73 Pulse Oximetry 100 Oxygen Delivery Method Nasal Cannula BMI result Body Mass Index 18.1 Labs 06/10/23 13:05 06/12/23 07:26 Medications Medications Current Medications Acetaminophen (Acetaminophen 325 Mg Tablet) 650 mg PO Q6H PRN PRN Reason: Headache/Pain Mild Scale (1-3) Al Hydroxide/Mg Hydroxide (Magnesium Hydrox/Alum Hydrox 30 Ml Oral.Susp) 30 ml PO Q6H PRN PRN Reason: Heartburn/Nausea Buspirone HCl (Buspirone Hcl 5 Mg Tablet) 15 mg PO BID NIKI Last Admin: 06/14/23 09:00 Dose: 15 mg Cariprazine (Cariprazine Hcl 3 Mg Capsule) 3 mg PO DAILY [facility] Last Admin: 06/14/23 09:00 Dose: 3 mg Clonidine HCl (Clonidine Hcl 0.1 Mg Tablet) 0.1 mg PO Q4H PRN; Protocol PRN Reason: anxiety Last Admin: 06/14/23 02:42 Dose: 0.1 mg Hydroxyzine HCl (Hydroxyzine Hcl 25 Mg Tablet) 25 mg PO Q6H PRN PRN Reason: Anxiety Lamotrigine (Lamotrigine 100 Mg Tablet) 100 mg PO DAILY [facility] Last Admin: 06/14/23 09:01 Dose: 100 mg Lamotrigine (Lamotrigine 25 Mg Tablet) 25 mg PO BEDTIME [facility] Last Admin: 06/13/23 21:45 Dose: 25 mg Magnesium Hydroxide (Milk Of Magnesia 30 Ml Oral.Susp) 30 ml PO DAILY PRN PRN Reason: Constipation Nitrofurantoin Macrocrystals (Nitrofurantoin Monohyd/M-Cryst 100 Mg Capsule) 100 mg PO BID [facility] Last Admin: 06/14/23 09:00 Dose: 100 mg Non-Formulary Medication (Norethindrone (Contraceptive) [Incassia]) 0.35 mg PO DAILY [facility] Last Admin: 06/14/23 09:00 Dose: 0.35 mg Trazodone HCl (Trazodone Hcl 50 Mg Tablet) 50 mg PO BEDTIME MRX1 PRN PRN Reason: Insomnia Last Admin: 06/14/23 02:42 Dose: 50 mg Allergies Allergies Allergy/AdvReac Type Severity Reaction Status Date / Time No Known Allergies Allergy Verified 06/10/23 12:58 Assessment & Plan Assessment & Plan (1) MDD (major depressive disorder), recurrent severe, without psychosis: Status: Acute Code(s): F33.2 - Major depressive disorder, recurrent severe without psychotic features (2) Anxiety: Status: Acute Code(s): F41.9 - Anxiety disorder, unspecified (3) Alcohol use disorder, moderate, in sustained remission: Status: Acute Code(s): F10.21 - Alcohol dependence, in remission Plan HPI: Patient is a 22-year-old female with history of depression, anxiety, alcohol abuse in remission, who presents for worsening depression with SI. Patient reports that depression started in high school; she lists several trials of medication including Lexapro, fluoxetine, Wellbutrin and Abilify. 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 After graduating high school patient drink about a bottle and a half of wine daily for about 6 months, trying to cope with depression, sometimes also abusing prescription oxycodone and Ativan. Patient got sober in 2020. She was started on Lamictal and some BuSpar and for the next year her mood significantly improved, she was working full-time, able to move out on her own. However, her worker hours were cut down and without being busy, depression started to set in; she was started on Vraylar 1.5 mg. Her depression did not improve much and with working less, She relapsed with alcohol for short duration which worsened her depression still. Although She has been sober for the past 4 months she remained depressed and this past spring who boyfriend broke up with her which compounded her depression. Patient's normally intermittent passive SI which was typically fleeting and able to be ignored, started to increase in frequency. Her Vraylar was increased to 3 mg and BuSpar to 15 mg b.i.d. (she was also started on Strattera though does not have any clear history of ADHD). Patient feels that her suicidal thinking intensified and became daily. These past few weeks her depression has significantly worsened where she has no interest in doing things, feeling guilty all the time, low energy, poor concentration, low appetite and sleeping most of the time; suicidal thoughts became present throughout the day. Patient felt strong need to get help before her depression and SI worsened still and so came to the hospital. Denies history of trauma; denies history of AVH; denies history of any obvious manic episode. Impression/plan: Patient has refractory depression. Patient has chronic depression only partially treated with Lamictal. Several medication trials including 2 SSRIs, Wellbutrin, Vraylar and augmentation trials with Abilify and BuSpar. Alcohol abuse seems to have been coping strategy clearly contributory, however patient has been sober for the past 4 months. There is no clear indication that patient has had any manic episodes; 1 time when she was sober she was acting hyper for a few days but she is vague on the details. -discussed lithium however patient is anxious about risk for side effects; also discussed ECT -will discontinue Strattera. Patient has no history of ADD type symptoms, getting straight A's, high honors all through schooling and her only struggles with concentration and attention are during depression. -will likely lower BuSpar; she has been on a low-dose but has not seemed helpful. Hospital course: 06/13 patient feeling better today; she thinks that simply encouragement that she has gotten from family and milieu. This caused her to question the need for medication management. However she realizes that when struggles come she gets quickly demoralized which heads towards serious depression. Will increase Lamictal but add a bedtime dose. Will remain on Vraylar and BuSpar for now. Patient feeling safe and started to talk about discharge and aftercare plans. Also discussed EMS 06/14 pt continues to feel much better; no depression, no SI, sleeping and eating well; no side-effects from increased Lamictal. Pt says she realizes she is able to get herself out of depression, that it's just when shes' despressed she forgets she has a tool box... Discussed behavioral activation, outpt therapy and partial day program. Pt asks for discharge; she feels ready and says she's starting to get bored on unit. father picking her up and she'll stay w/ boyfriend for a few days while waiting to start partial -reviewed med regimen and options going forward -pt safe, not in imminent risk for harm to self/others and request for discharge honored Plan: CV Q 15 minute checks Continue clonidine 0.1 mg Q 4 p.r.n. for anxiety Continue Vraylar 3 mg daily for now Continue Lamictal 100 mg daily; patient does not tolerate 150 mg, felt foggy brained continue Lamictal 25 mg q.h.s.; hopefully by splitting the dose she will not get foggy brain Return to BuSpar 15 mg b.i.d. Discontinue Strattera; no indication for ADHD Will explore medication options Will discuss T MS as a possibility Patient educated on: diagnosis, medication risk/benefits and therapeutic strategies Informed Consent: understands Reason for continued inpatient stay Substantial Risk for: stable for discharge Time Spent With Patient Time: Total time managing care of this patient today ____ minutes.
[2023-06-14 10:38] VITALS: BP 128/72; PULSE 97
--- NOTE | 2023-06-14 14:36 | PM.PSYDC ---
DS: Providers Provider Date of Service: 06/15/23 Date of admission: 06/11/23 14:04 Date of discharge: 06/15/23 Primary care physician: Unknown Physician Attending physician on admission: Juan Miguel Rowley Attending physician on discharge: Juan Miguel Rowley DS: Diagnosis Discharge Diagnosis (1) MDD (major depressive disorder), recurrent severe, without psychosis: Status: Acute (2) Anxiety: Status: Acute (3) Alcohol use disorder, moderate, in sustained remission: Status: Acute DS: Medications Discharge Medications Home Medications: Home Medications Medication Instructions Recorded Confirmed norethindrone (contraceptive) 0.35 0.35 mg PO DAILY 06/10/23 06/10/23 mg tablet (Incassia) Previous Rx's Medication Instructions Recorded buspirone 15 mg tablet 15 mg PO BID 30 days #60 tabs 06/14/23 cariprazine 3 mg capsule (Vraylar) 3 mg PO DAILY 30 days #30 caps 06/14/23 clonidine HCl 0.1 mg tablet 0.1 mg PO Q4H PRN anxiety 30 days 06/14/23 #90 tabs lamotrigine 100 mg tablet 100 mg PO DAILY 30 days #30 tabs 06/14/23 lamotrigine 25 mg tablet 25 mg PO BEDTIME 30 days #30 tabs 06/14/23 nitrofurantoin 100 mg PO BID 2 days #4 caps 06/14/23 monohydrate/macrocrystals 100 mg capsule trazodone 50 mg tablet 50 mg PO BEDTIME PRN Insomnia 30 06/14/23 days #30 tabs Mental Status Exam Mental Status Exam Narrative: Pt is alert and oriented; behavior is cooperative, friendly and calm; patient is not in distress; dressed in casual attire with adequate hygiene; mood is described as good and affect congruent, calm, bright; eye contact appropriate; Speech is normal rate, volume and prosody and not pressured; no psychomotor retardation present; thought process is organized and goal directed; Thought content is on treatment, hopeful; otherwise pertinent to relevant topics and without any delusional content, paranoid ideations or grandiosity; no SI; no HI. There is no evidence of perceptual disturbance. Patients insight and judgment fair Data Data Completed and Pending Completed studies during hospitalization [Text1]: 06/10/23 06/10/23 06/12/23 13:05 21:20 07:26 WBC 11.2 H RBC 4.20 Hgb 13.9 Hct 40.4 MCV 96.2 MCH 33.1 H MCHC 34.4 RDW 12.3 Plt Count 224 MPV 8.4 L Immature Gran % (Auto) 0.4 Neut % (Auto) 66.7 Lymph % (Auto) 22.3 [place] % (Auto) 7.1 Eos % (Auto) 3.1 Baso % (Auto) 0.4 Lymph # (Auto) 2.5 [place] # (Auto) 0.8 Eos # (Auto) 0.4 Baso # (Auto) 0.1 Abs Immat Gran (auto) 0.05 H Absolute Neuts (auto) 7.5 Absolute Nucleated RBC 0.000 Nucleated RBC % (auto) 0.0 Sodium 140 139 Potassium 4.3 3.9 Chloride 108 104 Carbon Dioxide 25 23 Anion Gap 11 L 16 BUN 10 9 Creatinine 0.89 0.78 Estim Creat Clear Calc 85.9 98.0 Estimated GFR > 60 > 60 Random Glucose 110 Fasting Glucose 92 Calcium 10.2 10.0 Magnesium 2.2 Total Bilirubin 0.3 0.8 Direct Bilirubin 0.1 AST 13 14 ALT 7 8 Alkaline Phosphatase 66 64 Total Protein 7.6 7.5 Albumin 4.8 4.8 Triglycerides 53 Cholesterol 190 LDL Cholesterol, Calc 117 H HDL Cholesterol 63 Urine Color Yellow Urine Appearance Clear Urine pH 6.0 Ur Specific [place] 1.020 Urine Protein Negative Urine Glucose (UA) Negative Urine Ketones Negative Urine Blood Moderate (2+) H Urine Nitrite Negative Ur Leukocyte Esterase Small (1+) H Urine RBC 6-10 H Urine WBC 6-10 H Ur Squamous Epith Cells 3-5 Urine Bacteria 1+ Hyaline Casts 0-2 Urine Test NEGATIVE Urine Opiates Screen Not Detected Urine Fentanyl Screen Not Detected Ur Barbiturates Screen Not Detected Lamotrigine Pending Ur Phencyclidine Scrn Not Detected Ur Amphetamines Screen Not Detected U Benzodiazepines Scrn Not Detected Urine Cocaine Screen Not Detected U Marijuana (THC) Screen POSITIVE H Ethyl Alcohol < 10 COVID-19 ([facility]) Negative COVID-19 Clin Com See Note 06/10/23 Unknown Urine clean catch - Urine aj top Urine Culture - Final No growth. DS: Summary Hospital Course Hospital Course: HPI: Patient is a 22-year-old female with history of depression, anxiety, alcohol abuse in remission, who presents for worsening depression with SI. Patient reports that depression started in high school; she lists several trials of medication including Lexapro, fluoxetine, Wellbutrin and Abilify. 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 After graduating high school patient drink about a bottle and a half of wine daily for about 6 months, trying to cope with depression, sometimes also abusing prescription oxycodone and Ativan. Patient got sober in 2020. She was started on Lamictal and some BuSpar and for the next year her mood significantly improved, she was working full-time, able to move out on her own. However, her worker hours were cut down and without being busy, depression started to set in; she was started on Vraylar 1.5 mg. Her depression did not improve much and with working less, She relapsed with alcohol for short duration which worsened her depression still. Although She has been sober for the past 4 months she remained depressed and this past spring who boyfriend broke up with her which compounded her depression. Patient's normally intermittent passive SI which was typically fleeting and able to be ignored, started to increase in frequency. Her Vraylar was increased to 3 mg and BuSpar to 15 mg b.i.d. (she was also started on Strattera though does not have any clear history of ADHD). Patient feels that her suicidal thinking intensified and became daily. These past few weeks her depression has significantly worsened where she has no interest in doing things, feeling guilty all the time, low energy, poor concentration, low appetite and sleeping most of the time; suicidal thoughts became present throughout the day. Patient felt strong need to get help before her depression and SI worsened still and so came to the hospital. Denies history of trauma; denies history of AVH; denies history of any obvious manic episode. Hospital course: On admission, patient was depressed and tearful with intermittent passive SI. She was feeling overwhelmed with her depressive and anxious feelings and worried that she would not get better. Patient benefited from clonidine which helped her anxiety and helped her sleep. Patient had been off her medications for a few days; she was restarted on Vraylar and BuSpar. Initially she thought maybe that the increase in Vraylar had triggered suicidal ideation however in hindsight she agreed that it was just coincidental and that her depression was the cause of the SI, not the medication. Patient's mood started to improve with milieu therapy. Adult Education Instructor and patient discussed medications at length and she agreed to try to maximize her current medication regimen rather than started a new med and decided to go up on Lamictal but this time, split the doses up which eliminated brain fog. Patient tolerated change well and she reported her depression had resolved; no SI at all and patient had a noticeably brighter affect. Pt patient reported a large part of her progress was realizing she is able to get herself out of depression; when shes' depressed she forgets she has a tool box... But coming to the unit, interacting with others, groups and 1 on 1 sessions, she felt better able to access her coping strategies which she found effective. Patient continued with BuSpar; Strattera discontinued since no history of ADHD and her only struggles with concentration/focus were due to depressive symptoms. Patient felt ready for discharge. She felt safe, back to her regular self and eager to return to the community and continue treatment. Patient has a therapist and she is pending start date for partial day program. Patient has a supportive family and supportive boyfriend. She feels confident she will continue to reach out for help if feeling unsafe and is optimistic about her continued progress. Patient is not in imminent risk for harm to self or others and her request for discharge honored. Time spent discussing smoking cessation with patient: 3 to 10 minutes Status at Discharge Functional status at discharge: independent ambulation Overall status at discharge: patient is back to baseline Time Spent with Patient Time attestation: Total time managing care of this patient today ____ minutes. Time spent: Less than 30 minutes Discharge Plan Discharge Anticipated Discharge Date/Time: 06/15/23 11:00 Patient Disposition: Home, Self-Care Discharge Diagnosis: MDD, recurrent, severe in full remission Referrals: [facility]: Fernando Beckett DNP [Other] - 06/20/23 2:00 pm (Follow-up hospital discharge appointment with psychiatric medication provider. Appointment in person) Jihan Aj (Therapist) [facility] [Other] - 1 Week (You will need to follow-up with therapist to schedule appointment.) [facility] (PHP) [Other] - 07/09/23 8:00 am (Referral to [facility] PHP program You are on priority list and PHP may reach out to you for an earlier date.) Physician,Unknown J [Primary Care Provider] - 1 Week Discharge Medications: New nitrofurantoin monohyd/m-cryst 100 mg Capsule 100 mg PO BID 2 Days Qty: 4 0RF clonidine HCl 0.1 mg Tablet 0.1 mg PO Q4H PRN (Reason: anxiety) 30 Days Qty: 90 1RF Protocol: Hold for SBP< HOLD for SBP < : 90 lamotrigine 25 mg Tablet 25 mg PO BEDTIME 30 Days Qty: 30 1RF trazodone 50 mg Tablet 50 mg PO BEDTIME PRN (Reason: Insomnia) 30 Days Qty: 30 0RF Continued norethindrone (contraceptive) [Incassia] 0.35 mg tablet 0.35 mg PO DAILY lamotrigine 100 mg tablet 100 mg PO DAILY 30 Days Qty: 30 1RF buspirone 15 mg tablet 15 mg PO BID 30 Days Qty: 60 1RF Vraylar 3 mg capsule 3 mg PO DAILY 30 Days Qty: 30 1RF Discontinued atomoxetine 40 mg capsule 40 mg PO QAM Discharge Orders: Discharge Order (Routine); Ordered 06/15/23 Ordered By: Juan Miguel Rowley Diet: Regular diet Activity on Discharge: As tolerated Stand Alone Forms: Patient Portal Discharge page Care Plan Goals: Maintain mood and safe behaviors Take medications as prescribed Continue to pursue sobriety Practice coping skills Continue with outpatient providers and reach out to them as needed Health Concerns: Mood stability and behaviors Sobriety Plan of Treatment: Follow up with your PCP, psychiatric provider and other outpatient providers regarding above concerns Take medications as prescribed Assessment: Risk assessment at time of discharge:? Patient was interviewed prior to discharge and found to be fully oriented and without any SI or HI. Patient has insight and demonstrates good judgment in terms of wanting to pursue treatment. Patient is not in imminent risk of harm to self or others and has a safety plan that includes presenting to the closest ER or calling 911 if feeling unsafe.? Patient has been observed closely by nursing and unit staff throughout admission; patient has not engaged in any behaviors that suggest dangerousness to self or others and has demonstrated appropriate behaviors and impulse control
[2023-06-14 18:00] VITALS: BP 124/72; PULSE 80; RESP 17; TEMP 36.6; O2SAT 100
[2023-06-14] MEDS: lamoTRIgine 25 MG TABLET PO (20:30)
[2023-06-15 06:00] VITALS: BP 132/72; PULSE 108; RESP 18; TEMP 36.7; O2SAT 99
[2023-06-15] MEDS: Nitrofurantoin Monohyd/M-Cryst 100 MG CAPSULE PO (08:55)
[2023-06-15] MEDS: busPIRone HCl 5 MG TABLET 15 MG PO (08:55)
[2023-06-15] MEDS: Cariprazine HCl 3 MG CAPSULE PO (08:55)
[2023-06-15] MEDS: lamoTRIgine 100 MG TABLET PO (08:56)
[2023-06-15 19:23] LABS: Lamotrigine Lamictal 1.1 mcg/mL (2.5-15.0)
== END 2023-06-15 10:50 | disposition home or self-care (01) | DRG 751 ==
LOC: HO.ED 19:55 → HO.PM5 06-11 14:04
PROVIDERS: Physician Assistant; Admitting Provider Psychiatry & Neurology Psychiatry; Emergency Provider Emergency Medicine; Visit Provider Psychiatry & Neurology Psychiatry
DX: F33.2 Major depressive disorder, recurrent severe without psychotic features (principal); F41.9 Anxiety disorder, unspecified; F10.21 Alcohol dependence, in remission; F17.210 Nicotine dependence, cigarettes, uncomplicated; Z20.822 Contact with and (suspected) exposure to COVID-19; Z71.6 Tobacco abuse counseling; Z79.3 Long term (current) use of hormonal contraceptives; Z79.899 Other long term (current) drug therapy
CPT/HCPCS: 36415; 80048; 80053; 80061; 80076; 80175; 80307; 81001; 81025; 83735; 85025; 87086; 87635; 93005; 99285; S9485

== ENCOUNTER → 2023-06-11 14:04 | Outpatient (BNV) | payer BC, SELFPAY | PROVIDERS: Admitting Provider Psychiatry & Neurology Psychiatry; Emergency Provider Emergency Medicine; Visit Provider Psychiatry & Neurology Psychiatry | DX: F33.2 Major depressive disorder, recurrent severe without psychotic features (principal); F41.9 Anxiety disorder, unspecified; F10.21 Alcohol dependence, in remission | CPT/HCPCS: 90792; 99231; 99232; 99238 ==

== ENCOUNTER 2023-08-26 16:32 | Inpatient (IN) | payer BC, SELFPAY ==
--- NOTE | 2023-08-26 | ECG_ITS ---
Test Reason : MED CLEAR Blood Pressure : / mmHG Vent. Rate : 059 BPM Atrial Rate : 059 BPM P-R Int : 150 ms QRS Dur : 078 ms QT Int : 402 ms P-R-T Axes : 046 088 057 degrees QTc Int : 397 ms Sinus bradycardia with marked sinus arrhythmia Otherwise normal ECG When compared with ECG of 11-JUN-2023 08:54, Vent. rate has decreased BY 30 BPM T wave inversion no longer evident in Anterior leads Referred By: Lisa Carter Electronically Signed By:ADAL LONG
[2023-08-26 16:43] VITALS: BP 149/80; PULSE 107; RESP 16; TEMP 37.3; O2SAT 100; BMI 19.2
--- NOTE | 2023-08-26 16:47 | ED_ITS ---
HPI - General Adult General Chief complaint: Psychiatric Symptoms Stated complaint: crisis eval Time Seen by Provider: 08/26/23 17:12 Source: patient Mode of arrival: ambulatory Limitations: no limitations History of Present Illness HPI narrative: Patient is a 23-year-old female presents emergency department with suicidal ideations and no specific plan. She endorses increasing depression recently, stressors, and feeling unsafe at home. When asked she states she has not been taking her medications recently, it is unclear when she stopped taking them or rhonchi. She has been consuming alcohol daily, approximately 6 drinks. Reports last drink to be 2 days ago. Denies history of withdrawal seizures. Denies any additional physical complaints at this time Related Data Home Medications Medication Instructions Recorded Confirmed buspirone 15 mg tablet 15 mg PO BID 08/26/23 08/26/23 cariprazine 3 mg capsule (Vraylar) 3 mg PO DAILY 08/26/23 08/26/23 lamotrigine 100 mg tablet 100 mg PO DAILY 08/26/23 08/26/23 lamotrigine 25 mg tablet 25 mg PO QPM 08/26/23 08/26/23 norethindrone (contraceptive) 0.35 0.35 mg PO DAILY 08/26/23 08/26/23 mg tablet (Incassia) propranolol 10 mg tablet 10 mg PO DAILY 08/26/23 08/26/23 Allergies Allergy/AdvReac Type Severity Reaction Status Date / Time No Known Allergies Allergy Verified 08/26/23 16:42 Review of Systems 2 Review of Systems: Yes all other systems are reviewed and are negative PMFSH Past Medical History Attestation statement: The following information was validated with the patient. Source: old records reviewed Medical History Alcohol use disorder, moderate, in sustained remission Anxiety MDD (major depressive disorder), recurrent severe, without psychosis Alcohol abuse Bipolar 2 disorder History of renal stone Social History Social History Household Members: None Household Members Other:: Lives with her father Housing: Apartment Do you presently have visiting nurse or other home services: No Alcohol intake: never Patient Tobacco Use Status: Current everyday Tobacco user Tobacco use type: Pipe Cigarettes Per Day: 5 Years Smoked: 3 e-Cigarette/Vaping Use: Never Used Second Hand Smoke Exposure: No Substance Use Type: Hallucinogens, Marijuana, Opiates, Painkillers, Prescription Drugs and Caffiene Advance Directives: No Advance Directives Information Provided: No Healthcare Proxy: No Guardian: No service: No Physical Exam ED Vital Signs: Vital Signs - 24 hr 08/26/23 16:43 08/26/23 17:41 Temperature 99.2 F Pulse Rate 107 H Respiratory Rate 16 18 Blood Pressure 149/80 H Pulse Oximetry 100 Oxygen Delivery Method Room Air BMI result Body Mass Index 19.2 Appearance: Alert.?Oriented to person, place and time. No acute distress.?Normal affect. Eyes: Pupils equal, round and reactive to light.? ENT: Pharynx normal.?? Neck: Normal inspection.? Neck supple.?? CVS: Heart sounds normal. Normal heart rate and rhythm.? Pulses normal.?? Respiratory: No respiratory distress.? Lung sounds clear to auscultation bilaterally?? Abdomen: Soft and non-tender. Normoactive bowel sounds. ? Skin: Skin warm and dry.? Normal skin color.? Extremities: No lower extremity edema.? Neuro: Moves all extremities spontaneously. Sensation intact bilaterally. CN II- XII intact. No focal neuro deficits. Ambulates with normal steady gait. Course Course Course Narrative: RME performed by Valeria Sarabia PA-C. Patient is a 23 year old assigned female at presenting to the emergency department with suicidal ideation and alcoholism. Labs and swabs ordered. Charge nurse made aware of patient. Medical Decision Making Medical Decision Making MDM Narrative: Patient is a 23-year-old female past medical history of alcohol use disorder, bipolar disorder, depression presenting to emergency department with suicidal ideations and increasing depression. She has no physical complaints, physical examination is benign. Will evaluate CIWA. Will obtain basic labs for clearance and refer to CARE team for further evaluation and determination of inpatient psychiatric services. Differential Diagnosis Differential Diagnoses: The differential diagnosis associated with the presentation includes (Depression, anxiety, polysubstance use disorder, suicidal ideations) Admission/Observation Consideration of admission/observation: Escalation of care including admission/observation considered (See narrative above) Consult Healthcare Provider Management of the patient was discussed with: Behavioral Health Provider (CARE team, see narrative above) Lab Data [facility] Lab Attestation statement: I reviewed the patient's lab results. CBC and CMP are overall unremarkable. Urinalysis without evidence of infection. testing negative. Alcohol level below detectable limits. 08/26/23 17:37 08/26/23 17:37 Labs: Lab Results 08/26/23 08/26/23 Range/Units 17:28 17:37 WBC 8.2 (4.8-10.8) X10*3/uL RBC 4.09 L (4.20-5.50) X10*6/uL Hgb 13.5 (12.0-16.0) g/dl Hct 39.7 (37.0-47.0) % MCV 97.1 (80.0-98.0) fL MCH 33.0 (27.0-33.0) pg MCHC 34.0 (31.0-35.0) g/dl RDW 12.2 (11.0-16.0) % Plt Count 220 (160-400) X10*3/uL MPV 8.7 L (9.4-12.3) fL Immature Gran % (Auto) 0.4 (0.0-0.4) % Neut % (Auto) 66.9 (45-73) % Lymph % (Auto) 21.8 (20-40) % [place] % (Auto) 8.9 (2-11) % Eos % (Auto) 1.6 (0-4) % Baso % (Auto) 0.4 (0-2) % Lymph # (Auto) 1.8 (1.2-4.9) X10*3/uL [place] # (Auto) 0.7 (0.1-1.2) X10*3/uL Eos # (Auto) 0.1 (0.0-0.4) X10*3/uL Baso # (Auto) 0.0 (0.0-0.2) X10*3/uL Abs Immat Gran (auto) 0.03 (0.00-0.03) X10*3/uL Absolute Neuts (auto) 5.5 (2.0-8.3) x10*3/uL Absolute Nucleated RBC 0.000 (0.0-0.012) X10*3/uL Nucleated RBC % (auto) 0.0 (0.0-0.2) /100WBC Sodium 142 (135-145) mmol/L Potassium 4.2 (3.3-5.1) mmol/L Chloride 107 (96-108) mmol/L Carbon Dioxide 27 (22-29) mmol/L Anion Gap 12 (12-20) BUN 14 (9-16) mg/dL Creatinine 0.90 (0.5-1.4) mg/dL Estim Creat Clear Calc 91.2 Estimated GFR > 60 Random Glucose 100 (60-115) mg/dL Calcium 9.8 (8.4-10.2) mg/dL Total Bilirubin 0.2 (0.0-1.0) mg/dL AST 15 (5-31) U/L ALT 16 (0-31) U/L Alkaline Phosphatase 60 (39-117) U/L Total Protein 7.3 (6.5-8.0) g/dL Albumin 4.6 (3.5-5.0) g/dL Urine Color Yellow Urine Appearance Clear Urine pH 6.5 (5.0-9.0) Ur Specific [place] 1.025 (1.005-1.025) Urine Protein Negative (Neg-Trace) mg/dL Urine Glucose (UA) Negative (Negative) mg/dL Urine Ketones Negative (Negative) mg/dL Urine Blood Small (1+) H (Negative) Urine Nitrite Negative (Negative) Ur Leukocyte Esterase Negative (Negative) Urine RBC 3-5 H (0-2) /HPF Urine WBC 0-5 (0-5) /HPF Ur Squamous Epith Cells 3-5 (0-2) /HPF Urine Bacteria Trace (None Seen) Hyaline Casts 0-2 (0-2) /LPF Urine Test NEGATIVE (NEGATIVE) Salicylates < 5.0 L (15-30) mg/dL Urine Opiates Screen Not Detected (Not Detect) Urine Fentanyl Screen Not Detected (Not Detect) Acetaminophen < 3 (<30) mcg/mL Ur Barbiturates Screen Not Detected (Not Detect) Ur Phencyclidine Scrn Not Detected (Not Detect) Ur Amphetamines Screen Not Detected (Not Detect) U Benzodiazepines Scrn Not Detected (Not Detect) Urine Cocaine Screen Not Detected (Not Detect) U Marijuana (THC) Screen POSITIVE H (Not Detect) Ethyl Alcohol < 10 mg/dL COVID-19 (TATIANA) Negative (Negative) COVID-19 Clin Com See Note External Record Review External record reviewed: Inpatient record Social Determinants Patient?s care significantly limited by Social Determinants of Health including: Alcoholism and drug addiction in family Discharge Plan Discharge Clinical Impression: Bipolar 2 disorder, Alcohol abuse Patient Disposition: Admitted As Inpatient Interventions: Kinney-Suicide Risk Severity Scale Last Done: 08/26/23 17:41
[2023-08-26 17:41] VITALS: RESP 18
[2023-08-26 17:43] LABS: MANUAL DIFF FLAG NO
[2023-08-26 17:45] LABS: Basophils Percent Auto 0.4 % (0-2); Eosinophils Absolute Auto 0.1 X10*3/uL (0.0-0.4); Eosinophils Percent Auto 1.6 % (0-4); Hematocrit 39.7 % (37.0-47.0); Hemoglobin 13.5 g/dl (12.0-16.0); Imm Gran Abs Auto 0.03 X10*3/uL (0.00-0.03); Imm Gran Pct Auto 0.4 % (0.0-0.4); Lymphocytes Absolute Auto 1.8 X10*3/uL (1.2-4.9); Lymphocytes Percent Auto 21.8 % (20-40); Mean Corpuscular Volume 97.1 fL (80.0-98.0); Mean Platelet Volume 8.7 fL (9.4-12.3); Monocytes Absolute Auto 0.7 X10*3/uL (0.1-1.2); Monocytes Percent Auto 8.9 % (2-11); Neutrophils Absolute Auto 5.5 x10*3/uL (2.0-8.3); Neutrophils Percent Auto 66.9 % (45-73); Platelet Count 220 X10*3/uL (160-400); Red Blood Count 4.09 X10*6/uL (4.20-5.50); Red Cell Distribution Width 12.2 % (11.0-16.0); White Blood Count 8.2 X10*3/uL (4.8-10.8)
--- NOTE | 2023-08-26 17:45 | PC.NURSE ---
PT self presented at the ED with increased depression and SI. Denies HI/AVH. Client reports they have been very sporadically taking their medications and for the last 2 weeks were drinking 5-6 drinks daily. No HX alcohol withdrawal seizures, does not feel any withdrawal symptoms currently CIWA 2. Changed over and labs collected. Med Rec completed. Awaiting CARE team. Client reports her home MD called to make sure there were beds on [facility] so I could go up there tonight . Process explained and client cooperative.
[2023-08-26 17:46] LABS: Appearance Urine Clear; Color Urine Yellow; Glucose Urine UA Negative (Negative); Leukocyte Esterase Urine Negative (Negative); Nitrite Urine Negative (Negative); PH 6.5 (5.0-9.0); Specific Gravity - Urine 1.025 (1.005-1.025); UMIC TRIGGER UA YES; UPreg QC Valid YES; Urine Blood Small (1+) (Negative); Urine Ketones Negative (Negative); Urine Pregnancy NEGATIVE (NEGATIVE); Urine Protein Negative (Neg-Trace)
[2023-08-26 17:51] LABS: Bacteria Urine Trace (None Seen); Hyaline Casts Urine 0-2 /LPF (0-2); WBC Urine 0-5 /HPF (0-5)
[2023-08-26 17:53] LABS: Amphetamine Screen Urine Not Detected (Not Detect); Barbiturates, Urine Not Detected (Not Detect); Benzodiazepines Screen Urine Not Detected (Not Detect); Cannabinoid Screen Urine POSITIVE (Not Detect); Cocaine Screen Urine Not Detected (Not Detect); Fentanyl, urine Not Detected (Not Detect); Opiate Screen Urine Not Detected (Not Detect); Phencyclidine Screen Urine Not Detected (Not Detect)
[2023-08-26 18:02] LABS: Acetaminophen LAB < 3 mcg/mL (<30); Alanine Aminotransferase 16 U/L (0-31); Albumin Level 4.6 g/dL (3.5-5.0); Alkaline Phosphatase 60 U/L (39-117); Anion Gap 12 (12-20); Aspartate Amino Transferase 15 U/L (5-31); Bilirubin Total 0.2 mg/dL (0.0-1.0); Blood Urea Nitrogen 14 mg/dL (9-16); Calcium 9.8 mg/dL (8.4-10.2); Carbon Dioxide 27 mmol/L (22-29); Chloride 107 mmol/L (96-108); Creatinine Clr Calc Pharmacy 91.2; Estimated Glomerular Filt Rate > 60; Ethanol < 10 mg/dL; Glucose Random 100 mg/dL (60-115); Potassium 4.2 mmol/L (3.3-5.1); Salicylate < 5.0 mg/dL (15-30); Sodium 142 mmol/L (135-145); Total Protein 7.3 g/dL (6.5-8.0)
[2023-08-26 18:06] LABS: COVID-19 Test Negative (Negative); IDNOW Serial# 08D9AD1C
--- NOTE | 2023-08-26 20:05 | PC.NURSE ---
patient appears to remain relaxed at present respirations are even and unlabored patient appears in no distress, making phone calls periodically
[2023-08-27] MEDS: lamoTRIgine 25 MG TABLET PO ×2 (00:51→20:17)
[2023-08-27] MEDS: traZODone HCL 50 MG TABLET PO (00:51)
[2023-08-27] MEDS: busPIRone HCl 5 MG TABLET 15 MG PO ×2 (00:51→08:29)
--- NOTE | 2023-08-27 05:22 | PC.ADMIT ---
Marguerite is a 23 years old female admitted from our ED for MDD, anxiety and alcohol use disorder. pt's legal status: CV. pt is alert and oriented x3, pt appeared pleasant, and cooperative with care. pt is medication adherent. per crisis team, pt self presented herself to the ED at the advice of her therapist, who called [facility] to confirm bed avialability. per crisis note, pt has not been taking her meds and has been drinking 6 glasses of whisky daily, last drink 2 days ago, pt is not exiting any signs of withrawal symptoms upon arrival to unit. pt denied depression, but endorses mild anxiety, pt refused atarax and wanted her HS meds and trazadone for sleppe
--- NOTE | 2023-08-27 05:34 | PCS.ADM ---
Marguerite is a 23 years old female admitted from our ED for MDD, anxiety and Etoh disorder. pt arrived to unit at 23:55 via WC. Pt's legal status :CV, 15mins check. pt is alert and oriented x3, pt is pleasant, and cooperative with care. per crisis team, pt presented to the ED at the advice of her therapist, who called [facility] to confirm availability. pt reports she has not been taking her medications and have been drinking 6 glasses of whisky daily, last drink a couple of days ago. pt is not exhibiting any signs of alcohol. pt reported mild anxiety but refused atarax prn for anxiety, but pt is medication adherent as she took all of her HS meds as well as Trazadone for sleep. pt unhappy with her assigned room as room-mate had the room untidy. pt became tearful and was given a private room for the night, pt reports I thought I was coming here to get help but it does not look like I am getting the help I want this chief underwriter assured pt she is safe on the unit and will get the help she wants. pt slept throughout the night.
--- NOTE | 2023-08-27 07:39 | PHA.MEDREC ---
Pharmacy Consult ? Medication Reconciliation Pharmacy has completed the medication reconciliation. PHARMACY HAS REVIEWED MED REC DONE BY NURSING.
[2023-08-27 08:04] VITALS: BP 134/82; PULSE 98; RESP 16; TEMP 36.8; O2SAT 95
[2023-08-27] MEDS: lamoTRIgine 100 MG TABLET PO (08:29)
--- NOTE | 2023-08-27 10:03 | P.HPPS_ITS ---
HPI Date of Service: 08/27/23 Chief Complaint: Anxiety and Depression, Alcohol use Disorder Sources of Information: patient interviewed, chart reviewed and crisis/core team assessment reviewed HPI Subjective Notes: Li Warning and Conditional Voluntary Narrative: T his?is?a?23-year-old?female?with?history?of?depression,?anxiety?and?alcohol?abus e?presents?for?worsening?depression?in?the?face?of? P sychosocial?stressors?and?relapse?with?alcohol.??Patient?was?discharge?from?[facility]?S eptember?2022?doing?well.??Plan?was?for?her T o?start?partial?day?program.??Patient?however?was?anxious?about?going?to?partial ?and?also?wondered?if?she?needed?it.??The?day?before P artial?started,?she?got?into?an?argument?with?her?boyfriend?and?relapsed?on?alco hol?and?thus?did?not?go.??She?got?sober?again,?was? H er?meds?and?even?got?a?job?but?anxiety?continued,?and?she?again?relapsed?with?al cohol.??Over?the?past?few?weeks?patient?has?been D rinking?daily;?she?is?taken?some?of?her?meds?regularly?such?as?Lamictal,?but?not ?all?of?them?and?has?not?taken?Vraylar?in?a?week. P atient's?depression?continued,?she?is?felt?hopeless?and?she?had?passive?SI;?todd marielle?she?is?grateful?that?her?hopelessness?did?not D escend?into?the?same?dark?place?she?entered?a?few?months?ago?where?she?was?activ sonny?suicidal.??Patient?is?ambivalent?about M edication,?feeling?like?it?is?a?sign?of?failure.??She?wants?to?increase?Lamictal ,?stay?on?BuSpar?and?get?back?on?Strattera (no?history O f?ADHD?but?she?felt?better?on?Strattera?in?general)?but?is?considering?getting?o ff?Vraylar?because?she?thinks?that?being?on?4?meds I s?embarrassing.??Discussed?how?patient's?mood?did?not?get?as?dark?as?last?time?a nd?that?perhaps?this?is?because?she?has?remained O n?Vraylar;?patient?agrees?to?continue?for?now.??No?history?of?trauma,?denies?his tory?of?manic?type?behaviors?or?episodes;?denies?AVH Past Psychiatric History: Psychiatrically admitted 1 time little over year ago No history of suicide attempt History of superficial self-harm, cutting thighs but not for the past several months. Currently engaged in outpatient therapy Medication trials: Lexapro, fluoxetine, Wellbutrin, Abilify, BuSpar Lamictal partially helpful Clonidine?partially?helpful?for?anxiety?but?makes?her?too?tired Medical Evaluation Reviewed: Yes [facility] Medical History Alcohol use disorder, moderate, in sustained remission Anxiety MDD (major depressive disorder), recurrent severe, without psychosis Alcohol abuse Bipolar 2 disorder History of renal stone Family History: Sister: Depression/anxiety Social History: The patient is the 2nd of 3 siblings, her milestones were achieved at expected age, she was raised by her mother and had a good childhood. Her parents when she was a sophomore. She graduated from high school with high honors and was accepted to pharmacy school however she did not attend due to depression; patient has been working part-time, lives in her own apartment. -mother and father are supportive -boyfriend supportive?however?he?too struggles?with?alcohol?abuse/mental?health?issues -currently?lives?on?her?own Substance History: H istory?of?on?and?off?alcohol?abuse;?some?history?of?abusing?oxycodone?and?Ativan Trauma History: Denies Diagnostics Vital Signs (24Hr): Vital Signs - 24 hr 08/26/23 16:43 08/26/23 17:41 Temperature 99.2 F Pulse Rate 107 H Respiratory Rate 16 18 Blood Pressure 149/80 H Pulse Oximetry 100 Oxygen Delivery Method Room Air BMI result Body Mass Index 19.2 Labs 08/26/23 17:37 08/26/23 17:37 Labs: Laboratory Results - last 48 hr 08/26/23 08/26/23 17:28 17:37 WBC 8.2 RBC 4.09 L Hgb 13.5 Hct 39.7 MCV 97.1 MCH 33.0 MCHC 34.0 RDW 12.2 Plt Count 220 MPV 8.7 L Immature Gran % (Auto) 0.4 Neut % (Auto) 66.9 Lymph % (Auto) 21.8 [place] % (Auto) 8.9 Eos % (Auto) 1.6 Baso % (Auto) 0.4 Lymph # (Auto) 1.8 [place] # (Auto) 0.7 Eos # (Auto) 0.1 Baso # (Auto) 0.0 Abs Immat Gran (auto) 0.03 Absolute Neuts (auto) 5.5 Absolute Nucleated RBC 0.000 Nucleated RBC % (auto) 0.0 Sodium 142 Potassium 4.2 Chloride 107 Carbon Dioxide 27 Anion Gap 12 BUN 14 Creatinine 0.90 Estim Creat Clear Calc 91.2 Estimated GFR > 60 Random Glucose 100 Calcium 9.8 Total Bilirubin 0.2 AST 15 ALT 16 Alkaline Phosphatase 60 Total Protein 7.3 Albumin 4.6 Urine Color Yellow Urine Appearance Clear Urine pH 6.5 Ur Specific [place] 1.025 Urine Protein Negative Urine Glucose (UA) Negative Urine Ketones Negative Urine Blood Small (1+) H Urine Nitrite Negative Ur Leukocyte Esterase Negative Urine RBC 3-5 H Urine WBC 0-5 Ur Squamous Epith Cells 3-5 Urine Bacteria Trace Hyaline Casts 0-2 Urine Test NEGATIVE Salicylates < 5.0 L Urine Opiates Screen Not Detected Urine Fentanyl Screen Not Detected Acetaminophen < 3 Ur Barbiturates Screen Not Detected Ur Phencyclidine Scrn Not Detected Ur Amphetamines Screen Not Detected U Benzodiazepines Scrn Not Detected Urine Cocaine Screen Not Detected U Marijuana (THC) Screen POSITIVE H Ethyl Alcohol < 10 COVID-19 ([facility]IANA) Negative COVID-19 Clin Com See Note Meds/Allergies Meds Home Medications Medication Instructions Recorded Confirmed Type buspirone 15 mg tablet 15 mg PO BID 08/26/23 08/26/23 History cariprazine 3 mg capsule (Vraylar) 3 mg PO DAILY 08/26/23 08/26/23 History lamotrigine 100 mg tablet 100 mg PO DAILY 08/26/23 08/26/23 History lamotrigine 25 mg tablet 25 mg PO QPM 08/26/23 08/26/23 History norethindrone (contraceptive) 0.35 0.35 mg PO DAILY 08/26/23 08/26/23 History mg tablet (Incassia) propranolol 10 mg tablet 10 mg PO DAILY 08/26/23 08/26/23 History Allergies Allergies Allergy/AdvReac Type Severity Reaction Status Date / Time No Known Allergies Allergy Verified 08/26/23 16:42 Mental Status Exam Mental Status Exam Narrative: Pt is alert and oriented; behavior is cooperative, friendly and calm; patient is not in distress; dressed in casual attire with adequate hygiene; mood is described as depressed and affect congruent, downcast and tearful; eye contact appropriate; Speech is normal rate, volume and prosody and not pressured; some psychomotor retardation present; thought process is organized and goal directed; Thought content is on afraid she will never get better; treatment options; otherwise pertinent to relevant topics and without any delusional content, paranoid ideations or grandiosity; intermittent?passive SI; no HI. There is no evidence of perceptual disturbance. Patients insight and judgment impaired Assessment & Plan Assessment & Plan (1) MDD (major depressive disorder), recurrent severe, without psychosis: Status: Acute Code(s): F33.2 - Major depressive disorder, recurrent severe without psychotic features (2) Alcohol abuse: Status: Acute Code(s): F10.10 - Alcohol abuse, uncomplicated (3) Anxiety: Status: Acute Code(s): F41.9 - Anxiety disorder, unspecified Plan T his?is?a?23-year-old?female?with?history?of?depression,?anxiety?and?alcohol?abus e?presents?for?worsening?depression?in?the?face?of? P sychosocial?stressors?and?relapse?with?alcohol.??Patient?was?discharge?from?[facility]?S eptember?2022?doing?well.??Plan?was?for?her T o?start?partial?day?program.??Patient?however?was?anxious?about?going?to?partial ?and?also?wondered?if?she?needed?it.??The?day?before P artial?started,?she?got?into?an?argument?with?her?boyfriend?and?relapsed?on?alco hol?and?thus?did?not?go.??She?got?sober?again,?was? H er?meds?and?even?got?a?job?but?anxiety?continued,?and?she?again?relapsed?with?al cohol.??Over?the?past?few?weeks?patient?has?been D rinking?daily;?she?is?taken?some?of?her?meds?regularly?such?as?Lamictal,?but?not ?all?of?them?and?has?not?taken?Vraylar?in?a?week. P atient's?depression?continued,?she?is?felt?hopeless?and?she?had?passive?SI;?todd marielle?she?is?grateful?that?her?hopelessness?did?not D escend?into?the?same?dark?place?she?entered?a?few?months?ago?where?she?was?activ sonny?suicidal.??Patient?is?ambivalent?about M edication,?feeling?like?it?is?a?sign?of?failure.??She?wants?to?increase?Lamictal ,?stay?on?BuSpar?and?get?back?on?Strattera (no?history O f?ADHD?but?she?felt?better?on?Strattera?in?general)?but?is?considering?getting?o ff?Vraylar?because?she?thinks?that?being?on?4?meds I s?embarrassing.??Discussed?how?patient's?mood?did?not?get?as?dark?as?last?time?a nd?that?perhaps?this?is?because?she?has?remained O n?Vraylar;?patient?agrees?to?continue?for?now.??No?history?of?trauma,?denies?his tory?of?manic?type?behaviors?or?episodes;?denies?AVH Impression/plan: P atient's?mood?seems?to?improve?with?medication;?she?is?in?therapy?and?has?been?f or?several?years.??Patient's?stability?seems?to?get? D erailed?by?relapse?with?alcohol;?she?agrees?that?if?she?could?keep?herself?from? relapsing?her?momentary?depressive?feelings?would? L ikely?dissipate.??Patient?and?specification writer?agree?increase?of?Lamictal?will?be?helpful; ?also?increase?BuSpar.??Patient?initially?wanted?to?stop? Vraylar?but?only?because?she?did?not?like?the?idea?of?being?on 4?for?medications;?she?is?entertaining?the?idea?that?Vraylar?is?very P ossibly?helpful.??Patient?denies?any?active?SI?and?feels?that?despite?being?depr essed?she?is?no?where?as?depressed?as?she?was A t?last?admission.??She?hopes?to?to?get?some?medication?adjustment?and?discharge? soon Plan: CV Q?15?minute?checks? CIWA?with?Ativan?p.r.n.;?currently?low?scoring Increase?Lamictal;?will?titrate?to?150 Continue?Vraylar?3?mg Increase?BuSpar?to?20?mg?b.i.d. Trazodone?100?mg P atient?would?like?to?get?back?on?Strattera?since?she?remembers?doing?well?coinci ding?with?being?on?this?medication?(though,?was Also?during?a?time?which?she?was?sober?and?living?with?her?father) Patient educated on: diagnosis, medication risk/benefits, substance abuse and therapeutic strategies Informed Consent: understands Reason for continued inpatient stay Substantial Risk for: rapid decompensation Statement Statement: I have reviewed the history and physical and performed a pertinent examination on my patient. No changes have occurred unless specified. If the History and Physical was not performed prior to admission, the Hospitalist's service will be consulted for completing the admission physical. Time Spent With Patient Time: Total time managing care of this patient today ____ minutes.
[2023-08-27 18:00] VITALS: BP 149/88; PULSE 72; TEMP 37.4; O2SAT 99
[2023-08-27] MEDS: hydrOXYzine HCL 25 MG TABLET PO ×2 (18:36→20:17)
[2023-08-27] MEDS: busPIRone HCl 10 MG TABLET 20 MG PO (20:17)
[2023-08-27] MEDS: traZODone HCL 100 MG TABLET PO (20:47)
[2023-08-28 08:00] VITALS: BP 128/85; PULSE 104; RESP 16; TEMP 36.4; O2SAT 100
[2023-08-28] MEDS: Cariprazine HCl 3 MG CAPSULE PO (08:35)
[2023-08-28] MEDS: busPIRone HCl 10 MG TABLET 20 MG PO ×2 (08:35→20:44)
[2023-08-28] MEDS: lamoTRIgine 25 MG TABLET 150 MG PO (08:35)
--- NOTE | 2023-08-28 09:40 | P.PNPSI_ITS ---
Subjective Subjective Date of Service: 08/28/23 Reason For Visit: Anxiety and Depression, Alcohol use Disorder Subjective Notes: Conditional Voluntary Interim History: Reviewed with . Patient reports feeling a little anxious today because of how loud the unit is ; reports sleeping well. Pt stated, I'm hoping to start the partial program right after discharge rather than having to wait weeks . denies SI/HI/VH/AH. Medication Compliance: Yes Review of Systems Constitutional: Reports as per HPI Eyes: Reports as per HPI Reports as per HPI Cardiovascular: Reports as per HPI Respiratory: Reports as per HPI Gastrointestinal: Reports as per HPI Genitourinary: Reports as per HPI Musculoskeletal: Reports as per HPI Skin/Breast: Reports as per HPI Reports as per HPI Psychiatric: Reports as per HPI Endocrine: Reports as per HPI Hematologic/Lymphatic: Reports as per HPI Allergic/Immunologic: Reports as per HPI Mental Status Exam Mental Status Exam Narrative: Pt is alert and oriented; behavior is cooperative and calm; dressed in casual attire; mood is described as good ; eye contact appropriate; Speech is normal rate, volume and prosody and not pressured; no psychomotor agitation/retardation present; thought process is organized and goal directed; Thought content is on tx; otherwise pertinent to relevant topics and without any delusional content, paranoid ideations or grandiosity; denies SI/HI. There is no evidence of perceptual disturbance. Diagnostics Vital Signs (24Hr): Vital Signs - 24 hr 08/27/23 18:00 08/28/23 08:00 Temperature 99.3 F 97.5 F Pulse Rate 72 104 H Respiratory Rate 16 Blood Pressure 149/88 H 128/85 Pulse Oximetry 99 100 Oxygen Delivery Method Room Air Room Air BMI result Body Mass Index 19.2 Labs 08/26/23 17:37 08/26/23 17:37 Labs: Laboratory Results - last 48 hr 08/26/23 08/26/23 17:28 17:37 WBC 8.2 RBC 4.09 L Hgb 13.5 Hct 39.7 MCV 97.1 MCH 33.0 MCHC 34.0 RDW 12.2 Plt Count 220 MPV 8.7 L Immature Gran % (Auto) 0.4 Neut % (Auto) 66.9 Lymph % (Auto) 21.8 [place] % (Auto) 8.9 Eos % (Auto) 1.6 Baso % (Auto) 0.4 Lymph # (Auto) 1.8 [place] # (Auto) 0.7 Eos # (Auto) 0.1 Baso # (Auto) 0.0 Abs Immat Gran (auto) 0.03 Absolute Neuts (auto) 5.5 Absolute Nucleated RBC 0.000 Nucleated RBC % (auto) 0.0 Sodium 142 Potassium 4.2 Chloride 107 Carbon Dioxide 27 Anion Gap 12 BUN 14 Creatinine 0.90 Estim Creat Clear Calc 91.2 Estimated GFR > 60 Random Glucose 100 Calcium 9.8 Total Bilirubin 0.2 AST 15 ALT 16 Alkaline Phosphatase 60 Total Protein 7.3 Albumin 4.6 Urine Color Yellow Urine Appearance Clear Urine pH 6.5 Ur Specific [place] 1.025 Urine Protein Negative Urine Glucose (UA) Negative Urine Ketones Negative Urine Blood Small (1+) H Urine Nitrite Negative Ur Leukocyte Esterase Negative Urine RBC 3-5 H Urine WBC 0-5 Ur Squamous Epith Cells 3-5 Urine Bacteria Trace Hyaline Casts 0-2 Urine Test NEGATIVE Salicylates < 5.0 L Urine Opiates Screen Not Detected Urine Fentanyl Screen Not Detected Acetaminophen < 3 Ur Barbiturates Screen Not Detected Ur Phencyclidine Scrn Not Detected Ur Amphetamines Screen Not Detected U Benzodiazepines Scrn Not Detected Urine Cocaine Screen Not Detected U Marijuana (THC) Screen POSITIVE H Ethyl Alcohol < 10 COVID-19 ([facility]) Negative COVID-19 Clin Com See Note Medications Medications Current Medications Acetaminophen (Acetaminophen 325 Mg Tablet) 650 mg PO Q6H PRN PRN Reason: Headache/Pain Mild Scale (1-3) Al Hydroxide/Mg Hydroxide (Magnesium Hydrox/Alum Hydrox 30 Ml Oral.Susp) 30 ml PO Q6H PRN PRN Reason: Heartburn/Nausea Buspirone HCl (Buspirone Hcl 10 Mg Tablet) 20 mg PO BID [facility] Last Admin: 08/28/23 08:35 Dose: 20 mg Cariprazine (Cariprazine Hcl 3 Mg Capsule) 3 mg PO DAILY [facility] Last Admin: 08/28/23 08:35 Dose: 3 mg Hydroxyzine HCl (Hydroxyzine Hcl 25 Mg Tablet) 25 mg PO Q6H PRN PRN Reason: Anxiety Last Admin: 08/27/23 20:17 Dose: 25 mg Lamotrigine (Lamotrigine 25 Mg Tablet) 150 mg PO DAILY [facility] Last Admin: 08/28/23 08:35 Dose: 150 mg Lorazepam (Lorazepam 1 Mg Tablet) 1 mg PO Q2H PRN PRN Reason: CIWA 8-11 Lorazepam (Lorazepam 1 Mg Tablet) 2 mg PO Q2H PRN PRN Reason: CIWA 12-15 Lorazepam (Lorazepam 1 Mg Tablet) 3 mg PO Q2H PRN PRN Reason: CIWA > 15; and call Magnesium Hydroxide (Milk Of Magnesia 30 Ml Oral.Susp) 30 ml PO DAILY PRN PRN Reason: Constipation Nicotine Polacrilex (Nicotine Polacrilex 2 Mg Gum) 4 mg BUCCAL Q2H PRN PRN Reason: Nicotine Cravings Pt Own ( Norethindrone ( Contraceptive) [ Incassia] 0.35 Mg Tablet) 0.35 mg PO DAILY [facility] Last Admin: 08/28/23 08:37 Dose: 0.35 mg Trazodone HCl (Trazodone Hcl 100 Mg Tablet) 100 mg PO BEDTIME [facility] Last Admin: 08/27/23 20:47 Dose: 100 mg Allergies Allergies Allergy/AdvReac Type Severity Reaction Status Date / Time No Known Allergies Allergy Verified 08/26/23 16:42 Assessment & Plan Assessment & Plan (1) MDD (major depressive disorder), recurrent severe, without psychosis: Status: Acute Code(s): F33.2 - Major depressive disorder, recurrent severe without psychotic features (2) Alcohol abuse: Status: Acute Code(s): F10.10 - Alcohol abuse, uncomplicated (3) Anxiety: Status: Acute Code(s): F41.9 - Anxiety disorder, unspecified Plan T his?is?a?23-year-old?female?with?history?of?depression,?anxiety?and?alcohol?abus e?presents?for?worsening?depression?in?the?face?of? P sychosocial?stressors?and?relapse?with?alcohol.??Patient?was?[facility]charge?from[facility]?doing?well.??Plan?was?for?her T o?start?partial?day?program.??Patient?however?was?anxious?about?going?to?partial ?and?also?wondered?if?she?needed?it.??The?day?before P artial?started,?she?got?into?an?argument?with?her?boyfriend?and?relapsed?on?alco hol?and?thus?did?not?go.??She?got?sober?again,?was? H er?meds?and?even?got?a?job?but?anxiety?continued,?and?she?again?relapsed?with?al cohol.??Over?the?past?few?weeks?patient?has?been D rinking?daily;?she?is?taken?some?of?her?meds?regularly?such?as?Lamictal,?but?not ?all?of?them?and?has?not?taken?Vraylar?in?a?week. P atient's?depression?continued,?she?is?felt?hopeless?and?she?had?passive?SI;?todd marielle?she?is?grateful?that?her?hopelessness?did?not D escend?into?the?same?dark?place?she?entered?a?few?months?ago?where?she?was?activ sonny?suicidal.??Patient?is?ambivalent?about M edication,?feeling?like?it?is?a?sign?of?failure.??She?wants?to?increase?Lamictal ,?stay?on?BuSpar?and?get?back?on?Strattera (no?history O f?ADHD?but?she?felt?better?on?Strattera?in?general)?but?is?considering?getting?o ff?Vraylar?because?she?thinks?that?being?on?4?meds I s?embarrassing.??Discussed?how?patient's?mood?did?not?get?as?dark?as?last?time?a nd?that?perhaps?this?is?because?she?has?remained O n?Vraylar;?patient?agrees?to?continue?for?now.??No?history?of?trauma,?denies?his tory?of?manic?type?behaviors?or?episodes;?denies?AV Impression/plan: P atient's?mood?seems?to?improve?with?medication;?she?is?in?therapy?and?has?been?f or?several?years.??Patient's?stability?seems?to?get? D erailed?by?relapse?with?alcohol;?she?agrees?that?if?she?could?keep?herself?from? relapsing?her?momentary?depressive?feelings?would? 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 Vraylar?but?only?because?she?did?not?like?the?idea?of?being?on 4?for?medications;?she?is?entertaining?the?idea?that?Vraylar?is?very P ossibly?helpful.??Patient?denies?any?active?SI?and?feels?that?despite?being?depr essed?she?is?no?where?as?depressed?as?she?was A t?last?admission.??She?hopes?to?to?get?some?medication?adjustment?and?discharge? soon Plan: CV Q?15?minute?checks? CIWA?with?Ativan?p.r.n.;?currently?low?scoring Increase?Lamictal;?will?titrate?to?150 Continue?Vraylar?3?mg Increase?BuSpar?to?20?mg?b.i.d. Trazodone?100?mg P atient?would?like?to?get?back?on?Strattera?since?she?remembers?doing?well?coinci ding?with?being?on?this?medication?(though,?was Also?during?a?time?which?she?was?sober?and?living?with?her?father) 08/28: continue current tx plan. Patient educated on: diagnosis and medication risk/benefits Informed Consent: understands Reason for continued inpatient stay Substantial Risk for: med/psych decompensation Time Spent With Patient Time: Total time managing care of this patient today _20___ minutes.
[2023-08-28 16:15] VITALS: BP 136/97; PULSE 93; TEMP 37.1; O2SAT 100
[2023-08-28] MEDS: LORazepam 1 MG TABLET PO (16:30)
--- NOTE | 2023-08-28 16:35 | PC.NURSE ---
Pt.'s BP was measured at 136/97-asymptomatic. Reporting anxiety-Ativan 1mg given. Reported to Dr Rowley via [employer].
[2023-08-28] MEDS: hydrOXYzine HCL 25 MG TABLET PO (20:44)
[2023-08-28] MEDS: traZODone HCL 100 MG TABLET PO (20:44)
[2023-08-29 08:00] VITALS: BP 131/75; PULSE 87; RESP 16; TEMP 36.9; O2SAT 98
[2023-08-29] MEDS: lamoTRIgine 25 MG TABLET 150 MG PO (08:43)
[2023-08-29] MEDS: busPIRone HCl 10 MG TABLET 20 MG PO ×2 (08:44→21:56)
[2023-08-29] MEDS: Cariprazine HCl 3 MG CAPSULE PO (08:44)
--- NOTE | 2023-08-29 09:49 | HO.PSYCHPN ---
Subjective Subjective Date of Service: 08/29/23 Reason For Visit: Anxiety and Depression, Alcohol use Disorder Interim History: met with patient; discussed with team pt says she is ok...bored. She appreciates med change, increase in lamictal and buspar, but she wants to discharge home saturday (instead of planned day saturday) saying she does not feel she's benefiting from inpt admission and growing anxious from the aquity. Denies SI; depression remains, but she's more hopeful; she agreed to a reading recovery teacher and agrees she needs to focus more on her sobriety. not scoring on [facility] Mental Status Exam Mental Status Exam Narrative: Pt is alert and oriented; behavior is cooperative and calm; dressed in casual attire; mood is described as bored ; eye contact appropriate; Speech is normal rate, volume and prosody and not pressured; no psychomotor agitation/retardation present; thought process is organized and goal directed; Thought content is on tx; otherwise pertinent to relevant topics and without any delusional content, paranoid ideations or grandiosity; denies SI/HI. There is no evidence of perceptual disturbance. Judgment/insight fair Diagnostics Vital Signs (24Hr): Vital Signs - 24 hr 08/28/23 16:15 08/29/23 08:00 Temperature 98.7 F 98.4 F Pulse Rate 93 87 Respiratory Rate 16 Blood Pressure 136/97 H 131/75 Pulse Oximetry 100 98 Oxygen Delivery Method Room Air Room Air BMI result Body Mass Index 19.2 Labs 08/26/23 17:37 08/26/23 17:37 Medications Medications Current Medications Acetaminophen (Acetaminophen 325 Mg Tablet) 650 mg PO Q6H PRN PRN Reason: Headache/Pain Mild Scale (1-3) Al Hydroxide/Mg Hydroxide (Magnesium Hydrox/Alum Hydrox 30 Ml Oral.Susp) 30 ml PO Q6H PRN PRN Reason: Heartburn/Nausea Buspirone HCl (Buspirone Hcl 10 Mg Tablet) 20 mg PO BID [facility] Last Admin: 08/29/23 08:44 Dose: 20 mg Cariprazine (Cariprazine Hcl 3 Mg Capsule) 3 mg PO DAILY [facility] Last Admin: 08/29/23 08:44 Dose: 3 mg Hydroxyzine HCl (Hydroxyzine Hcl 25 Mg Tablet) 25 mg PO Q6H PRN PRN Reason: Anxiety Last Admin: 08/28/23 20:44 Dose: 25 mg Lamotrigine (Lamotrigine 25 Mg Tablet) 150 mg PO DAILY [facility] Last Admin: 08/29/23 08:43 Dose: 150 mg Lorazepam (Lorazepam 1 Mg Tablet) 1 mg PO Q2H PRN PRN Reason: CIWA 8-11 Last Admin: 08/28/23 16:30 Dose: 1 mg Lorazepam (Lorazepam 1 Mg Tablet) 2 mg PO Q2H PRN PRN Reason: CIWA 12-15 Lorazepam (Lorazepam 1 Mg Tablet) 3 mg PO Q2H PRN PRN Reason: CIWA > 15; and call Magnesium Hydroxide (Milk Of Magnesia 30 Ml Oral.Susp) 30 ml PO DAILY PRN PRN Reason: Constipation Nicotine Polacrilex (Nicotine Polacrilex 2 Mg Gum) 4 mg BUCCAL Q2H PRN PRN Reason: Nicotine Cravings Pt Own ( Norethindrone ( Contraceptive) [ Incassia] 0.35 Mg Tablet) 0.35 mg PO DAILY [facility] Last Admin: 08/29/23 08:43 Dose: 0.35 mg Trazodone HCl (Trazodone Hcl 100 Mg Tablet) 100 mg PO BEDTIME [facility] Last Admin: 08/28/23 20:44 Dose: 100 mg Allergies Allergies Allergy/AdvReac Type Severity Reaction Status Date / Time No Known Allergies Allergy Verified 08/26/23 16:42 Assessment & Plan Assessment & Plan (1) MDD (major depressive disorder), recurrent severe, without psychosis: Status: Acute Code(s): F33.2 - Major depressive disorder, recurrent severe without psychotic features (2) Alcohol abuse: Status: Acute Code(s): F10.10 - Alcohol abuse, uncomplicated (3) Anxiety: Status: Acute Code(s): F41.9 - Anxiety disorder, unspecified Plan This?is?a?23-year-old?female?with?history?of?depression,?anxiety?and?alcohol?abuse?presents?for?worsening?depression?in?the?face?of? Psychosocial?stressors?and?relapse?with?alcohol.??Patient?was?discharge?from?[facility]?May?2022?doing?well.??Plan?was?for?her To?start?partial?day?program.??Patient?however?was?anxious?about?going?to?partial?and?also?wondered?if?she?needed?it.??The?day?before Partial?started,?she?got?into?an?argument?with?her?boyfriend?and?relapsed?on?alcohol?and?thus?did?not?go.??She?got?sober?again,?was? Her?meds?and?even?got?a?job?but?anxiety?continued,?and?she?again?relapsed?with?alcohol.??Over?the?past?few?weeks?patient?has?been Drinking?daily;?she?is?taken?some?of?her?meds?regularly?such?as?Lamictal,?but?not?all?of?them?and?has?not?taken?Vraylar?in?a?week. Patient's?depression?continued,?she?is?felt?hopeless?and?she?had?passive?SI;?however?she?is?grateful?that?her?hopelessness?did?not Descend?into?the?same?dark?place?she?entered?a?few?months?ago?where?she?was?actively?suicidal.??Patient?is?ambivalent?about Medication,?feeling?like?it?is?a?sign?of?failure.??She?wants?to?increase?Lamictal,?stay?on?BuSpar?and?get?back?on?Strattera (no?history Of?ADHD?but?she?felt?better?on?Strattera?in?general)?but?is?considering?getting?off?Vraylar?because?she?thinks?that?being?on?4?meds Is?embarrassing.??Discussed?how?patient's?mood?did?not?get?as?dark?as?last?time?and?that?perhaps?this?is?because?she?has?remained On?Vraylar;?patient?agrees?to?continue?for?now.??No?history?of?trauma,?denies?history?of?manic?type?behaviors?or?episodes;?denies?AVH Impression/plan: Patient's?mood?seems?to?improve?with?medication;?she?is?in?therapy?and?has?been?for?several?years.??Patient's?stability?seems?to?get? Derailed?by?relapse?with?alcohol;?she?agrees?that?if?she?could?keep?herself?from?relapsing?her?momentary?depressive?feelings?would? Likely?dissipate.??Patient?and?contract writer?agree?increase?of?Lamictal?will?be?helpful;?also?increase?BuSpar.??Patient?initially?wanted?to?stop? Vraylar?but?only?because?she?did?not?like?the?idea?of?being?on 4?for?medications;?she?is?entertaining?the?idea?that?Vraylar?is?very Possibly?helpful.??Patient?denies?any?active?SI?and?feels?that?despite?being?depressed?she?is?no?where?as?depressed?as?she?was At?last?admission.??She?hopes?to?to?get?some?medication?adjustment?and?discharge?soon 08/29 pt asking to discharge saturday (rather than saturday); feels being on unit longer counterproductive; no SI and pt more hopeful. Denies SI and future oriented, looking forward to partial day program. Pt not in imminent risk harm to self/others and request for discharge honored. Plan: CV Q?15?minute?checks? dc CIWA Increase?Lamictal;?will?titrate?to?150 Continue?Vraylar?3?mg Increase?BuSpar?to?20?mg?b.i.d. Trazodone?100?mg Patient?would?like?to?get?back?on?Strattera?since?she?remembers?doing?well?coinciding?with?being?on?this?medication?(though,?was Also?during?a?time?which?she?was?sober?and?living?with?her?father) 12/6: continue current tx plan. Patient educated on: diagnosis, medication risk/benefits and therapeutic strategies Informed Consent: understands Reason for continued inpatient stay Substantial Risk for: stable for discharge Time Spent With Patient Time: Total time managing care of this patient today ____ minutes.
[2023-08-29 16:18] VITALS: BP 127/80; PULSE 91; TEMP 36.4; O2SAT 100
[2023-08-29] MEDS: hydrOXYzine HCL 25 MG TABLET PO (17:14)
[2023-08-29] MEDS: traZODone HCL 100 MG TABLET PO (21:56)
--- NOTE | 2023-08-29 22:58 | P.DS_ITS ---
DS: Providers Provider Date of Service: 08/30/23 Date of admission: 08/26/23 23:26 Date of discharge: 08/30/23 Primary care physician: Unknown Physician Attending physician on admission: Juan Miguel Rowley Discharging clinician: Juan Miguel Rowley DS: Diagnosis Discharge Diagnosis (1) MDD (major depressive disorder), recurrent severe, without psychosis: Status: Acute (2) Alcohol abuse: Status: Acute (3) Anxiety: Status: Acute DS: Medications Discharge Medications Home Medications: Home Medications Medication Instructions Recorded Confirmed cariprazine 3 mg capsule (Vraylar) 3 mg PO DAILY 08/26/23 08/26/23 norethindrone (contraceptive) 0.35 0.35 mg PO DAILY 08/26/23 08/26/23 mg tablet (Incassia) Previous Rx's Medication Instructions Recorded buspirone 10 mg tablet 20 mg (2 x 10 mg) PO BID 30 days 08/29/23 #120 tabs hydroxyzine HCl 25 mg tablet 25 mg PO Q6H PRN Anxiety 30 days 08/29/23 #60 tabs lamotrigine 150 mg tablet 150 mg PO DAILY 30 days #30 tabs 08/29/23 trazodone 100 mg tablet 100 mg PO BEDTIME 30 days #30 tabs 08/29/23 Mental Status Exam Mental Status Exam Narrative: Pt is alert and oriented; behavior is cooperative and calm; dressed in casual attire; mood is described as euthymic. affect congruent; eye contact appropriate; Speech is normal rate, volume and prosody and not pressured; no p sychomotor agitation/retardation present; thought process is organized and goal directed; Thought content is on tx, discharge; otherwise pertinent to relevant topics and without any delusional content, paranoid ideations or grandiosity; denies SI/HI. There is no evidence of perceptual disturbance. Judgment/insight fair Data Data Completed and Pending Completed studies during hospitalization [Text1]: 08/26/23 08/26/23 17:28 17:37 WBC 8.2 RBC 4.09 L Hgb 13.5 Hct 39.7 MCV 97.1 MCH 33.0 MCHC 34.0 RDW 12.2 Plt Count 220 MPV 8.7 L Immature Gran % (Auto) 0.4 Neut % (Auto) 66.9 Lymph % (Auto) 21.8 Clark % (Auto) 8.9 Eos % (Auto) 1.6 Baso % (Auto) 0.4 Lymph # (Auto) 1.8 Clark # (Auto) 0.7 Eos # (Auto) 0.1 Baso # (Auto) 0.0 Abs Immat Gran (auto) 0.03 Absolute Neuts (auto) 5.5 Absolute Nucleated RBC 0.000 Nucleated RBC % (auto) 0.0 Sodium 142 Potassium 4.2 Chloride 107 Carbon Dioxide 27 Anion Gap 12 BUN 14 Creatinine 0.90 Estim Creat Clear Calc 91.2 Estimated GFR > 60 Random Glucose 100 Calcium 9.8 Total Bilirubin 0.2 AST 15 ALT 16 Alkaline Phosphatase 60 Total Protein 7.3 Albumin 4.6 Urine Color Yellow Urine Appearance Clear Urine pH 6.5 Ur Specific [place] 1.025 Urine Protein Negative Urine Glucose (UA) Negative Urine Ketones Negative Urine Blood Small (1+) H Urine Nitrite Negative Ur Leukocyte Esterase Negative Urine RBC 3-5 H Urine WBC 0-5 Ur Squamous Epith Cells 3-5 Urine Bacteria Trace Hyaline Casts 0-2 Urine Test NEGATIVE Salicylates < 5.0 L Urine Opiates Screen Not Detected Urine Fentanyl Screen Not Detected Acetaminophen < 3 Ur Barbiturates Screen Not Detected Ur Phencyclidine Scrn Not Detected Ur Amphetamines Screen Not Detected U Benzodiazepines Scrn Not Detected Urine Cocaine Screen Not Detected U Marijuana (THC) Screen POSITIVE H Ethyl Alcohol < 10 COVID-19 ([facility]IANA) Negative COVID-19 Clin Com See Note DS: Summary Hospital Course Hospital Course: HPI: This?is?a?23-year-old?female? with?history?of?depression,?anxiety?and?alcohol?abuse?presents?for?worsening?dep ression?in?the?face?of? Psychosocial?stressors?and?relapse?with?alcohol.??Patient?was?discharge?from?[facility]? May?2022?doing?well.??Plan?was?for?her To?start?partial?day?program.??Patient?however?was?anxious?about?going?to?partia l?and?also?wondered?if?she?needed?it.??The?day?before Partial?started,?she?got?into?an?argu ment?with?her?boyfriend?and?relapsed?on?alcohol?and?thus?did?not?go.??She?got?so dona?again,?was? Her?meds?and?even?got?a?job?but?anxiety?continued,?and?she?again?relapsed?with?a lcohol.??Over?the?past?few?weeks?patient?has?been Drinking?daily;?she?is?taken?some?of?her?meds?regularly?such?as?Lamictal,?but?no t?all?of?them?and?has?not?taken?Vraylar?in?a?week. Patient's?depression?continued,?she?is?felt ?hopeless?and?she?had?passive?SI;?however?she?is?grateful?that?her?hopelessness? did?not Descend?into?the?same?dark?place?she?entered?a?few?months?ago?where?she?was?acti vely?suicidal.??Patient?is?ambivalent?about Medication,?feeling?like?it?is?a?sign?of?failure.??She?wants?to?increase?Lamicta l,?stay?on?BuSpar?and?get?back?on?Strattera (no?history Of?ADHD?but?she?felt?better?on?Strattera?in?general) ?but?is?considering?getting?off?Vraylar?because?she?thinks?that?being?on?4?meds Is?embarrassing.??Discussed?how?patient's?mood?did?not?get?as?dark?as?last?time? and?that?perhaps?this?is?because?she?has?remained On?Vraylar;?patient?agrees?to?continue?for?now.??No?history?of?trauma,?denies?hi story?of?manic?type?behaviors?or?episodes;?denies?AVH Impression/Hospitals course: P atient's?mood?seems?to?improve?with?medication;?she?is?in?therapy?and?has?been?f or?several?years.??Patient's?stability?seems?to?get? Derailed?by?relapse?with?alcohol;?she?agrees?that?if?she?could?keep ?herself?from?relapsing?her?momentary?depressive?feelings?would? Likely?dissipate.??Patient?and?scientific technical writer?agree?increase?of?Lamictal?will?be?helpful ;?also?increase?BuSpar.??Patient?initially?wanted?to?stop? Vraylar?but?only?because?she?did?not?like?the?idea?of?being?on 4?for?medications;?she?is?entertaining?the?idea?that?Vraylar?is?very Possibly?helpful.??Patient?denies?any?active?SI?and?feels?that?d espite?being?depressed?she?is?no?where?as?depressed?as?she?was At?last?admission.??She?hopes?to?to?get?some?medication?adjustment?and?discharge ?soon 08/28 Patient reports feeling a little anxious today because of how loud the unit is; sleeping well. States I'm hoping to start the partial program right after discharge rather than having to wait weeks. denies SI/HI/VH/AH. 08/29 pt says she is ok...bored. She appreciates med change, increase in lamictal and buspar, but she wants to discharge home saturday (instead of planned day saturday) saying she does not feel she's benefiting from inpt admission and growing anxious from the aquity. Denies SI; depression remains, but she's more hopeful; she agreed to a men's golf coach and agrees she needs to focus more on her sobriety. 08/29 pt asking to discharge saturday (rather than saturday); feels being on unit for any longer will be counterproductive; no SI and pt more hopeful. Denies SI and future oriented, looking forward to partial day program. Pt not in imminent risk harm to self/others and request for discharge honored. Medication: Increased?Lamictal Continued?Vraylar?3?mg Increased?BuSpar?to?20?mg?b.i.d. Trazodone?100?mg Time spent discussing smoking cessation with patient: 3 to 10 minutes Status at Discharge Functional status at discharge: independent ambulation Overall status at discharge: patient is back to baseline Time Spent with Patient Time attestation: Total time managing care of this patient today ____ minutes. Time spent: Less than 30 minutes Discharge Plan Discharge Anticipated Discharge Date/Time: 08/30/23 11:00 Patient Disposition: Home, Self-Care Discharge Diagnosis: MDD, recurrent, severe, in partial remission Referrals: [facility]): Partial Hospitalization Program [Other] - 09/02/23 (Referral to Partial Hospitalization Program (PHP) Patient has phone call with [facility] on 09/02/23 for appointment or potential intake.) Fernando Beckett (psychiatric provider) [Other] - 1 Week (Hospital Discharge appointment with psychiatric provider ) Jihan Aj (therapist) [Other] - 1 Week (Hospital discharge appointment with outpatient therapist) [facility] [Other] - 1 Week ([facility] Information ) Arina Underwood NP [Nurse Practitioner] - 09/04/23 1:30 pm (IN OFFICE) Discharge Medications: New hydroxyzine HCl 25 mg Tablet 25 mg PO Q6H PRN (Reason: Anxiety) 30 Days Qty: 60 0RF Hold Instructions: Resume on 09/10/23. will d/c if guanfacine effective Continued norethindrone (contraceptive) [Incassia] 0.35 mg tablet 0.35 mg PO DAILY Changed lamotrigine 150 mg tablet 150 mg PO DAILY 30 Days Qty: 30 0RF buspirone 10 mg tablet 20 mg PO BID 30 Days Qty: 120 0RF Discontinued lamotrigine 25 mg tablet 25 mg PO QPM propranolol 10 mg tablet 10 mg PO DAILY No Action atomoxetine [Strattera] 25 mg capsule See Rx Instructions .ROUTE .COMPLEX 15 Days Qty: 22 0RF Rx Instructions: take 1 capsule daily for 8 days, then increase to 2 capsules daily guanfacine 1 mg tablet extended release 24 hr 1 mg PO DAILY Qty: 20 0RF Vraylar 1.5 mg capsule 1.5 mg PO DAILY Qty: 10 0RF trazodone 100 mg Tablet 100 mg PO BEDTIME PRN (Reason: Sleep) 30 Days Qty: 30 0RF Discharge Orders: Discharge Order (Routine); Ordered 08/30/23 Ordered By: Juan Miguel Rowley Diet: Regular diet Activity on Discharge: As tolerated Stand Alone Forms: Patient Portal Discharge page, Community Support Care Plan Goals: Maintain mood and safe behaviors Take medications as prescribed Continue to pursue sobriety Practice coping skills Continue with outpatient providers and reach out to them as needed Health Concerns: Mood stability and behaviors Sobriety Plan of Treatment: Follow up with your PCP, psychiatric provider and other outpatient providers regarding above concerns Take medications as prescribed Assessment: Risk assessment at time of discharge:? Patient was interviewed prior to discharge and found to be fully oriented and without any SI or HI. Patient has improved insight and judgment and wants to continue treatment. Patient is not in imminent risk of harm to self or others and has a safety plan that includes presenting to the closest ER or calling 911 if feeling unsafe.? Patient has been observed closely by nursing and unit staff throughout admission; patient has not engaged in any behaviors that suggest dangerousness to self or others and has demonstrated appropriate behaviors and impulse control Discharge Date/Time: 08/30/23 11:06
[2023-08-30] MEDS: traZODone HCL 100 MG TABLET PO (01:02)
[2023-08-30 06:00] VITALS: BP 126/74; PULSE 105; RESP 16; TEMP 36.8; O2SAT 97
[2023-08-30] MEDS: busPIRone HCl 10 MG TABLET 20 MG PO (08:06)
[2023-08-30] MEDS: lamoTRIgine 25 MG TABLET 150 MG PO (08:06)
[2023-08-30] MEDS: Cariprazine HCl 3 MG CAPSULE PO (08:07)
== END 2023-08-30 11:06 | disposition home or self-care (01) | DRG 751 ==
LOC: HO.ED 17:18 → HO.PM5 23:33
PROVIDERS: Physician Assistant Medical; Admitting Provider Psychiatry & Neurology Psychiatry; Emergency Provider Student in an Organized Health Care Education/Training Program; Visit Provider Psychiatry & Neurology Psychiatry
DX: F33.2 Major depressive disorder, recurrent severe without psychotic features (principal); R45.851 Suicidal ideations; F10.10 Alcohol abuse, uncomplicated; F41.9 Anxiety disorder, unspecified; Z20.822 Contact with and (suspected) exposure to COVID-19; Z79.899 Other long term (current) drug therapy
CPT/HCPCS: 80053; 80143; 80179; 80307; 81001; 81025; 85025; 87635; 93005; 99285; S9485

== ENCOUNTER → 2023-08-26 22:13 | Outpatient (BNV) | payer BC, SELFPAY | PROVIDERS: Admitting Provider Psychiatry & Neurology Psychiatry; Emergency Provider Student in an Organized Health Care Education/Training Program; Visit Provider Internal Medicine | DX: R00.1 Bradycardia, unspecified (principal) | CPT/HCPCS: 93010 ==

== ENCOUNTER → 2023-08-26 23:26 | Outpatient (BNV) | payer BC, SELFPAY | PROVIDERS: Admitting Provider Psychiatry & Neurology Psychiatry; Emergency Provider Student in an Organized Health Care Education/Training Program; Visit Provider Psychiatry & Neurology Psychiatry | DX: F33.2 Major depressive disorder, recurrent severe without psychotic features (principal); F10.10 Alcohol abuse, uncomplicated; F41.9 Anxiety disorder, unspecified | CPT/HCPCS: 90792; 99231; 99238 ==

== ENCOUNTER 2023-09-03 09:30 | Outpatient (RCR) | payer BC, SELFPAY ==
--- NOTE | 2023-09-03 13:40 | PC.NURSE ---
Marguerite was tearful asking staff if she can leave the program early as she was feeling too overwhelmed. She is unsure if the program is a good fit for her and asked to go home as she wanted to think it over and discuss with her mother if she should continue the program. She denied SI or thoughts to harm herself. She did not want to complete the nursing assessment with me at this time. I also asked that she try the program at least for a few days so she can get a better understanding of the program. She will let us know if she is going to continue the program. [facility] staff is aware.
--- NOTE | 2023-09-03 21:27 | HO.PS.ADMBH ---
HPI Date of Service: 09/03/23 Chief Complaint: MDD Sources of Information: patient interviewed, chart reviewed and crisis/core team assessment reviewed Additional Sources of Information: HPI Narrative: This is a 23 year old unemployed female with a history of anxiety, depression who has been struggling with alcohol abuse, high emotional reactivity and mood dysregulation. She reports struggling with depression and anxiety for 2 or 3 years now but is currently at an exceptionally low point in life, the past 6 months have been the worst she has ever felt. Very depressed, distressed, feels like crying all the time and in fact was very easily tearful throughout our encounter today. She needed several minutes to gain some composure, saying she is definitely feeling overwhelmed being at the program today, she could not identify any one particular issues or trigger, indicating it's just kind of everything . She also reports that her mother kicked her out of the house last year due to her alcohol use, and she has been struggling with her mental health since. She lives in an apartment for the past year, she does not have any roommates and reportedly isolates. She hasn't been able to work for the past 6 months on account of her depression, anxiety causing cognitive and functional impairment. She reports struggling with low mood, sadness, tearfulness and dramatic mood swings, irritability is sometimes an issue, no issues with anger. Reports poor sleep quality, although gets 8 hrs with trazodone, but feels tired and shaky at the same time. Reports appetite is poor but denies weight loss, especially struggles to eat in the AM. SHe rates her depression at a 7 out of 10 in severity, anxiety is at an 8 or 9 out of 10 in severity. Mood stability overall at a 40-50%. She complains of feeling constant brain fog difficulties focusing and problem solving, over-thinking, indecisiveness, easily feeling overwhelmed but any stressor or task, causing considerable functional impairment. She reports issues with cognitive and somatic anxiety, particularly anxiety in her body - nervousness, restlessness, increased heart rate, muscle tension. She is habituated to using alcohol to cope with numbing her frustrations or emotions, or to forget stressors. She usually liberally, about 5 or 6 drinks daily for extended periods, on and off. Currently her drinking has been under control for the past 2 weeks. It's cyclical problem, where the depression and anxiety leads to alcohol abuse, which in turn contributes to worsening depression and anxiety. She endorses fleeting SI without a plan or intent. She shares a history of self harming behaviors but says she has not engaged in any SIB in the past 2 or 3 months and denies any thoughts or urges to do so. She reports a history of bouts of SIB on and off over the past 3 or 4 years. She has been on Lamictal and Buspar for close to 2 years. They felt more helpful in the past. Vraylar has been prescribed for the past 4 months. She has noticed no improvement with the Vraylar and believes things have only worsened since the dose was increased from 1.5 mg to 3 mg a couple of months ago. Most recent medication changes were increases to Lamictal and Buspar. She has been considering attending AA meetings because her drinking is out of countrol and the urge to drink persists. Past Psychiatric History: IPLOC x at least 3: 08/2023, 05/2022, 12/2020 No history of suicide attempt History of superficial self-harm, cutting thighs but not for the past several months. Currently engaged in outpatient therapy Medication trials: Lexapro, fluoxetine, Wellbutrin, Abilify, BuSpar, Strattera Lamictal partially helpful Clonidine?partially?helpful?for?anxiety?but?makes?her?too?tired [facility] Medical History Alcohol use disorder, moderate, in sustained remission Anxiety MDD (major depressive disorder), recurrent severe, without psychosis Alcohol abuse Bipolar 2 disorder History of renal stone Family History: Sister: Depression/anxiety. Denies any hx of addiction or suicides in family Social History: Lives on her own in an apartment for past year, she has a BF who struggles with MH issues. 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 Her parents when she was a sophomore. Parents are supportive Trauma History: Denies Meds/Allergies Meds Home Medications Medication Instructions Recorded Confirmed Type norethindrone (contraceptive) 0.35 0.35 mg PO DAILY 08/26/23 08/26/23 History mg tablet (Incassia) Narrative: CURRENT MEDICATIONS Lamictal 150 mg (~2 yrs, recently increased from 100 mg/d) Buspar 20 mg BID (~ 2 years, recently increased from 15 mg BID) Vraylar 3 mg qAM (~3 or 4 months) hydroxyzine PRN trazodone 100 mg qHS Allergies Allergies Allergy/AdvReac Type Severity Reaction Status Date / Time No Known Allergies Allergy Verified 08/26/23 16:42 Mental Status Exam Mental Status Exam Narrative: Alert, oriented, in no acute distress. Casually dressed. Fair grooming and hygiene. Notably dry cracked peeling lips. Normal gait, no tics or tremors. Anxious but cooperative, forthcoming. Intermittent yye contact. Mood is depressed, dysphoric. Affect labile, tearful. Speech is normal rate, low volume, low prosody. No latency or pressured speech. Thought process is linaer, coherent without illogicality or FOI/LACEY. Thought content relevant to feelings of helplessness, hopelessness, passive SI without intention or plan. No thoughts of harming self or others. No gross evidence of psychosis. Cognition grossly intact. Sensorium clear. Insight fair. Judgment fair but adequate Assessment & Plan Assessment & Plan (1) Mood disorder: Status: Acute Code(s): F39 - Unspecified mood [affective] disorder Assessment and Plan: carries diagnoses of MDD and Bipolar II Disorder, bipolar spectrum supported by clinical history, however difficult to untangle mood dysregulation driven by alcohol abuse from underlying mood disorder (2) Alcohol abuse: Status: Acute Code(s): F10.10 - Alcohol abuse, uncomplicated (3) Anxiety: Status: Acute Code(s): F41.9 - Anxiety disorder, unspecified Assessment and Plan: cognitive and somatic anxiety Plan Impression/plan: carries previous diagnoses of MDD and Bipolar II Disorder; bipolar spectrum disorder felt to be supported by clinical history, however difficult to untangle mood dysregulation driven by alcohol abuse from underlying affective disorder (possibly unipolar depression complicated by SIMD). High level of emotional lability/tearfulness beyond expected reactivity to provocating stressors or events. Patient currently on 2 mood stabilizers with limited effect, complicated by alcohlism. We discussed risk reduction strategies and further recovery treatment. Agrees to consider starting naltrexone but was reluctant to start due to being on multiple medicaitons and in fact was hoping to limit the number of medicaitons she is presently prescribed. Admit to PHP pt will consider naltrexone reduce Vraylar to 1.5 mg qd (plan to taper off) continue Lamictal 150 mg qd (last incr 1 week ago) - ?causing brain fog consider further titrating Lamictal vs augmentation w lithium start atemoxetine 25 mg qAM (we also discussed trial of sertraline however pt prefers to return to atemoxetine (reports benefit from previous treatment) start guanfacine ER 1 mg BID continue Buspar 20 mg BID (recently increased from 15 mg BID) switch trazodone 100 mg qHS to a PRN for sleep hold off hydroxyzine we discussed options for cravings, including naltrexone, patient will consider this Patient educated on: diagnosis, medication risk/benefits and substance abuse Informed Consent: understands Reason for continued partial hosp. stay Substantial Risk for: harm to self, inability to function, rapid decompensation and med/psych decompensation Certification I certify that partial hospital treatment is medically necessary due to the symptoms and problems resulting from the patient's mental illness and the failure to treat the patient at the partial hospital level of care would likely result in the patient requiring inpatient psychiatric care which could not be prevented at a less intensive level of care. Time Spent With Patient Time: Total time managing care of this patient today __60__ minutes.
--- NOTE | 2023-09-04 15:15 | HO.PHP ---
At 8:30 am pt called PHP to say she will not be returning. Pt attended PHP groups for less than 1 complete day. Not open to reconsidering, stated it's not a good fit did not elaborate. Pt stated she was safe and she would consider returning in the future if she felt she needed to. Pt reported she has a therapist in place with an appt scheduled for tomorrow, 09/05/23, with Marcellus Aj . Pt also stated she has a med provider, Fernando Beckett. Reported she will be making an appt with her by the end of today.
== END 2023-09-03 23:59 | disposition home or self-care (01) ==
LOC: HO.PHPA 09:30
PROVIDERS: Visit Provider Psychiatry & Neurology Psychiatry
DX: F39 Unspecified mood [affective] disorder (principal); F41.9 Anxiety disorder, unspecified; F10.10 Alcohol abuse, uncomplicated; Z79.899 Other long term (current) drug therapy
CPT/HCPCS: 90791; 90853

== ENCOUNTER → 2023-09-03 09:30 | Outpatient (BNV) | payer BC, SELFPAY | PROVIDERS: Visit Provider Psychiatry & Neurology Psychiatry | DX: F39 Unspecified mood [affective] disorder (principal); F10.10 Alcohol abuse, uncomplicated; F41.9 Anxiety disorder, unspecified | CPT/HCPCS: 90792 ==